=== PATIENT | female | born 1935 | race Caucasian/White ===

== ENCOUNTER 2018-07-22 16:14 | Inpatient (IN) ==
--- NOTE | 2018-07-22 16:17 | Emergency Department Note ---
Disposition Clinical Impression: Fall, Lung nodule, Dehydration Disposition: Admitted As Inpatient Condition: Fair General Adult HPI - General Stated complaint: poss cva Time Seen by Provider: 07/22/18 16:16 - Related Data Allergies Allergy/AdvReac Type Severity Reaction Status Date / Time No Known Allergies Allergy Verified 07/22/18 16:38 Course Vital Signs Temperature 97.5 F L 07/22/18 16:17 Pulse Rate 97 07/22/18 16:17 Respiratory Rate 22 07/22/18 16:17 Blood Pressure 90/68 07/22/18 16:17 O2 Sat by Pulse Oximetry 97 07/22/18 16:17 Temperature 97.4 F L 07/22/18 21:39 Pulse Rate 98 07/22/18 21:39 Respiratory Rate 20 07/22/18 21:39 Blood Pressure 124/69 07/22/18 21:39 O2 Sat by Pulse Oximetry 89 07/22/18 21:55 Oxygen Delivery Oxygen Delivery Nasal Cannula Medical Decision Making - Lab Data Result diagrams: 07/22/18 20:36 07/22/18 20:36 Lab Results 07/22/18 07/22/18 07/22/18 Range/Units 17:34 17:34 17:34 WBC 33.3 H* (4.3-11.1) K/mcL RBC 5.43 H (3.82-4.97) M/mcL Hgb 16.6 H (11.5-15.4) g/dL Hct 47.0 H (35.3-44.9) % MCV 86.6 (83.0-100.0) fL MCH 30.6 (28.0-33.3) pg MCHC 35.3 (31.6-35.5) g/dL RDW 12.4 (11.5-14.5) % Plt Count 266 (140-400) K/mcL MPV 8.6 L (9.4-12.4) fL Seg Neutrophils % 98.0 % Lymphocytes % 2.0 % Neutrophils # 32.6 H (1.6-8.9) K/mcL Lymphocytes # 0.7 (0.6-4.6) K/mcL Platelet Estimate Normal (Normal) PT 12.9 H (9.4-12.1) Seconds INR 1.1 Sodium 122 L (136-145) mEq/L Potassium 4.9 (3.5-5.1) mEq/L Chloride 83 L (98-107) mEq/L Carbon Dioxide 23 (23-29) mEq/L BUN 30 H (8-23) mg/dL Creatinine 0.42 L (0.60-1.20) mg/dL Est GFR ( Amer) > 60 (> 60) Est GFR (Non-Af Amer) > 60 (> 60) BUN/Creatinine Ratio 71 H (6-26) Glucose 65 L (70-105) mg/dL Calculated Osmolality 258 L (280-300) Calcium 9.3 (8.6-10.3) mg/dL Magnesium 1.8 (1.6-2.6) mg/dL Total Bilirubin 0.8 (0.3-1.0) mg/dL AST 55 H (13-39) Units/L ALT 44 (7-52) Units/L Alkaline Phosphatase 106 H (34-104) Units/L Creatine Kinase 394 H (30-223) Units/L Troponin I 0.04 H* (< 0.04) ng/mL Serum Total Protein 5.9 L (6.4-8.9) g/dL Albumin 3.3 L (3.5-5.7) g/dL Globulin 2.6 (2.4-3.5) g/dL Albumin/Globulin Ratio 1.3 (1.1-2.2) Urine Color (Yellow) Urine Clarity (Clear) Urine pH (5.0-8.0) pH Units Ur Specific [place] (1.010-1.025) Urine Protein (Neg-Trace) mg/dL Urine Glucose (UA) (Normal) mg/dL Urine Ketones (Negative) mg/dL Urine Blood (Negative) Urine Nitrite (Negative) Urine Bilirubin (Negative) Urine Urobilinogen (Normal) mg/dL Ur Leukocyte Esterase (Negative) Urine Microscopic RBC (0-3) per hpf Urine Microscopic WBC (0-3) per hpf Ur Squamous Epith Cells (None-Few) per lpf Urine Bacteria (None-Few) per hpf Hyaline Casts (None-Few) per lpf 07/22/18 Range/Units 19:05 WBC (4.3-11.1) K/mcL RBC (3.82-4.97) M/mcL Hgb (11.5-15.4) g/dL Hct (35.3-44.9) % MCV (83.0-100.0) fL MCH (28.0-33.3) pg MCHC (31.6-35.5) g/dL RDW (11.5-14.5) % Plt Count (140-400) K/mcL MPV (9.4-12.4) fL Seg Neutrophils % % Lymphocytes % % Neutrophils # (1.6-8.9) K/mcL Lymphocytes # (0.6-4.6) K/mcL Platelet Estimate (Normal) PT (9.4-12.1) Seconds INR Sodium (136-145) mEq/L Potassium (3.5-5.1) mEq/L Chloride (98-107) mEq/L Carbon Dioxide (23-29) mEq/L BUN (8-23) mg/dL Creatinine (0.60-1.20) mg/dL Est GFR ( Amer) (> 60) Est GFR (Non-Af Amer) (> 60) BUN/Creatinine Ratio (6-26) Glucose (70-105) mg/dL Calculated Osmolality (280-300) Calcium (8.6-10.3) mg/dL Magnesium (1.6-2.6) mg/dL Total Bilirubin (0.3-1.0) mg/dL AST (13-39) Units/L ALT (7-52) Units/L Alkaline Phosphatase (34-104) Units/L Creatine Kinase (30-223) Units/L Troponin I (< 0.04) ng/mL Serum Total Protein (6.4-8.9) g/dL Albumin (3.5-5.7) g/dL Globulin (2.4-3.5) g/dL Albumin/Globulin Ratio (1.1-2.2) Urine Color Yellow (Yellow) Urine Clarity Cloudy A (Clear) Urine pH 6.0 (5.0-8.0) pH Units Ur Specific [place] 1.016 (1.010-1.025) Urine Protein 30 H (Neg-Trace) mg/dL Urine Glucose (UA) Normal (Normal) mg/dL Urine Ketones Trace H (Negative) mg/dL Urine Blood Negative (Negative) Urine Nitrite Negative (Negative) Urine Bilirubin Negative (Negative) Urine Urobilinogen Normal (Normal) mg/dL Ur Leukocyte Esterase Negative (Negative) Urine Microscopic RBC 0-3 (0-3) per hpf Urine Microscopic WBC 0-3 (0-3) per hpf Ur Squamous Epith Cells Many H (None-Few) per lpf Urine Bacteria None Seen (None-Few) per hpf Hyaline Casts None Seen (None-Few) per lpf Attestation Statement - Attestation Attestation: I reviewed the residents documentation and agree with the residents assessment and plan of care. I have personally had face to face time with the patient. (Brief History, Brief Exam, and MDM) I personally supervised and was present for the garcia/critical portions of the following procedures completed by the resident: (add procedures performed here). [id number] time provided Patient arrives home by EMS. On arrival she is alert and lucid with very dry mucous membranes. She does not appear to have any focal neurologic motor deficits. It was reported that she fell several days ago. I evaluated this patient in conjunction with the resident physician Dr. Meyer. I attest supervising his interpretation of ECG.
[2018-07-22] MEDS ORDERED: 0.9 % Sodium Chloride 1,000 ML IVC ONE ×2 (16:27→17:56)
--- NOTE | 2018-07-22 17:11 | Emergency Department Note ---
Disposition Clinical Impression: Lung nodule, Dehydration Fall Qualifiers: Encounter type: initial encounter Qualified Code(s): W19.XXXA - Unspecified fall, initial encounter Disposition: Admitted As Inpatient Condition: Fair Forms: ED Satisfaction Letter General Adult HPI - General Chief complaint: ED Fall Stated complaint: FAll Time Seen by Provider: 07/22/18 16:16 Source: patient, EMS Mode of arrival: ambulatory Limitations: no limitations Nursing Notes Reviewed: Yes Vital Signs Reviewed: Yes - History of Present Illness HPI Narrative: 83-year-old female presents to the emergency department after being found on the ground. She states that she fell on Saturday and has been unable to get up on her own since that time. She said that she just got weak and fell to the ground should she did not hit her head did not lose consciousness. Today her son went to go check on her and then he noticed on exam asthma called EMS. Patient states that she remembers everything she does not hurt anywhere this feels weak. She has burning with urination and has had a cough. She does not noted any fevers recently. Patient otherwise has no other complaints at this time. Pain Scale: 3 - Related Data Allergies Allergy/AdvReac Type Severity Reaction Status Date / Time No Known Allergies Allergy Verified 07/22/18 16:38 All systems ED: reviewed and negative except as stated. Review of Systems: As Per HPI Past Medical History - Past Medical History Attestation: Yes The following information was validated with the patient. Source: patient Medical history: Reports: hyperlipidemia, hypertension, other Psychiatric history: Reports: no psych history - Social History Smoking Status: Unknown if ever smoked Smokeless Tobacco Status: No Alcohol use: Reports: unknown Drug use: Reports: unknown Physical Exam - General Limitations: no limitations General appearance: alert - Head Head exam: atraumatic, normocephalic, normal inspection - Eye Eye exam: Present: normal appearance, PERRL, EOMI - ENT ENT exam: normal exam, normal oropharynx, mucous membranes moist - Neck Neck exam: Present: normal inspection, full ROM, trachea midline - Chest Chest inspection: Present: normal inspection, symmetric chest wall rise - Respiratory Respiratory exam: Present: normal lung sounds bilaterally, other (Rhonchi nanette aterally.). Absent: respiratory distress, wheezes, accessory muscle use - Cardiovascular Cardiovascular exam: Present: regular rate, normal rhythm, normal heart sounds - Abdominal Exam Abdominal exam: Present: soft, Non-Tender, normal bowel sounds. Absent: tenderness, distention, guarding, rebound, rigidity - Extremities Exam Extremities exam: Present: normal inspection, full ROM. Absent: tenderness, pedal edema - Expanded Lower Extremity Exam Hip/Pelvis exam: Present: normal inspection, full ROM, pelvis stable - Back Exam Back exam: Present: normal inspection, full ROM, other (Mild bruising to the mid thoracic area right were patient's kyphotic back is. There is no open sores. No open ulcers. There is no pain while palpating the entire spine from cervical to lumbar spine.). Absent: tenderness, CVA tenderness (R), CVA tenderness (L) - Neurological Exam Neurological exam: Present: alert, oriented X3 - Expanded Neurological Exam Patient oriented to: Present: person, place, time Speech: Present: fluid speech Cranial nerves: EOM function (II, III, IV, ): Normal, facial sensation (V): Normal, facial palsy (VII): Normal, spinal accessory function (XI): Normal, tongue deviation (XII): Normal Cerebellar function: finger to nose: Normal, heel to leos: Normal Motor strength - LUE: 4/5 Motor strength - RUE: 4/5 Motor strength - LLE: 4/5 Motor strength - RLE: 4/5 Upper motor neuron exam: millie neglect: Absent bilaterally, pronator drift: Absent bilaterally Sensory exam lower extremity: light touch: Normal Coma Scale Eye Opening: Spontaneous Coma Scale Motor Response: Obeys Commands Coma Scale Verbal Response: Oriented Coma Scale Total: 15 - Skin Skin exam: Present: warm, dry, intact, normal color Course Course Narrative: Patient sees a failure to thrive also possible rhabdomyolysis. There is no pain along the spine while palpating to the fall we will get a CT head we will get basic labs including a CK we a troponin EKG chest x-ray. Patient okay with this plan. We will give patient 1 L IV fluids as she does seem dehydrated at this time. Urinalysis also pending. We will also get blood cultures. Disposition will be admission for further evaluation and hydration. Vital Signs Temperature 97.5 F L 07/22/18 16:17 Pulse Rate 97 07/22/18 16:17 Respiratory Rate 22 07/22/18 16:17 Blood Pressure 90/68 07/22/18 16:17 O2 Sat by Pulse Oximetry 97 07/22/18 16:17 Temperature 97.5 F L 07/22/18 16:17 Pulse Rate 81 07/22/18 18:52 Respiratory Rate 16 07/22/18 18:52 Blood Pressure 116/58 07/22/18 18:52 O2 Sat by Pulse Oximetry 96 07/22/18 18:52 Oxygen Delivery Oxygen Delivery Nasal Cannula Medical Decision Making - MDM Narrative Medical decision making narrative: 83 old female presented to the emergency department after a fall where she was found down in the spray laying down for multiple days. Did have elevated CK could have been an mild rhabdomyolysis. But she only had a mild elevated CK. Patient did show to be very dehydrated. There is no signs of infection urine was normal chest x-ray did show possible nodule we will do a routine chest CT later. This nonemergent this time. Did give the patient total of 2 L of IV fluids. She did respond well to this. Patient alert and oriented. She had an NIH scale of 0 area there is very low likelihood of this being a stroke. Patient did receive 2 L IV fluid she does feel better after doing this. I spoke with the hospitalist who agreed to accept the patient to their service. Patient admitted in stable condition. There was a nodule seen on chest x-ray did tell patient will do a routine CT later. Chest X-Ray 07/22/18 16:17 IMPRESSION: 1. Questionable 1.7 cm nodular density overlying the right lung. Recommend CT of the chest for further evaluation. D/ / Chicho Beyer MD / Chicho Beyer MD Interpreting Provider: Chicho Beyer MD Head CT 07/22/18 16:17 IMPRESSION: No acute intracranial abnormality. Findings compatible with age related atrophy and likely chronic small vessel ischemic change. Mild soft tissue swelling posterior left scalp. No acute bony abnormalities. D/ / Delfino Lopes MD / Delfino Lopes MD Interpreting Provider: Delfino Lopes MD - Medical Records Medical records reviewed: Yes I reviewed the patient's medical records. - Lab Data Lab results reviewed: Yes I reviewed the patient's lab results. Result diagrams: 07/22/18 17:34 07/22/18 17:34 Lab Results 07/22/18 07/22/18 07/22/18 Range/Units 17:34 17:34 17:34 WBC 33.3 H* (4.3-11.1) K/mcL RBC 5.43 H (3.82-4.97) M/mcL Hgb 16.6 H (11.5-15.4) g/dL Hct 47.0 H (35.3-44.9) % MCV 86.6 (83.0-100.0) fL MCH 30.6 (28.0-33.3) pg MCHC 35.3 (31.6-35.5) g/dL RDW 12.4 (11.5-14.5) % Plt Count 266 (140-400) K/mcL MPV 8.6 L (9.4-12.4) fL Seg Neutrophils % 98.0 % Lymphocytes % 2.0 % Neutrophils # 32.6 H (1.6-8.9) K/mcL Lymphocytes # 0.7 (0.6-4.6) K/mcL Platelet Estimate Normal (Normal) PT 12.9 H (9.4-12.1) Seconds INR 1.1 Sodium 122 L (136-145) mEq/L Potassium 4.9 (3.5-5.1) mEq/L Chloride 83 L (98-107) mEq/L Carbon Dioxide 23 (23-29) mEq/L BUN 30 H (8-23) mg/dL Creatinine 0.42 L (0.60-1.20) mg/dL Est GFR ( Amer) > 60 (> 60) Est GFR (Non-Af Amer) > 60 (> 60) BUN/Creatinine Ratio 71 H (6-26) Glucose 65 L (70-105) mg/dL Calculated Osmolality 258 L (280-300) Calcium 9.3 (8.6-10.3) mg/dL Magnesium 1.8 (1.6-2.6) mg/dL Total Bilirubin 0.8 (0.3-1.0) mg/dL AST 55 H (13-39) Units/L ALT 44 (7-52) Units/L Alkaline Phosphatase 106 H (34-104) Units/L Creatine Kinase 394 H (30-223) Units/L Troponin I 0.04 H* (< 0.04) ng/mL Serum Total Protein 5.9 L (6.4-8.9) g/dL Albumin 3.3 L (3.5-5.7) g/dL Globulin 2.6 (2.4-3.5) g/dL Albumin/Globulin Ratio 1.3 (1.1-2.2) Urine Color (Yellow) Urine Clarity (Clear) Urine pH (5.0-8.0) pH Units Ur Specific [place] (1.010-1.025) Urine Protein (Neg-Trace) mg/dL Urine Glucose (UA) (Normal) mg/dL Urine Ketones (Negative) mg/dL Urine Blood (Negative) Urine Nitrite (Negative) Urine Bilirubin (Negative) Urine Urobilinogen (Normal) mg/dL Ur Leukocyte Esterase (Negative) Urine Microscopic RBC (0-3) per hpf Urine Microscopic WBC (0-3) per hpf Ur Squamous Epith Cells (None-Few) per lpf Urine Bacteria (None-Few) per hpf Hyaline Casts (None-Few) per lpf 07/22/18 Range/Units 19:05 WBC (4.3-11.1) K/mcL RBC (3.82-4.97) M/mcL Hgb (11.5-15.4) g/dL Hct (35.3-44.9) % MCV (83.0-100.0) fL MCH (28.0-33.3) pg MCHC (31.6-35.5) g/dL RDW (11.5-14.5) % Plt Count (140-400) K/mcL MPV (9.4-12.4) fL Seg Neutrophils % % Lymphocytes % % Neutrophils # (1.6-8.9) K/mcL Lymphocytes # (0.6-4.6) K/mcL Platelet Estimate (Normal) PT (9.4-12.1) Seconds INR Sodium (136-145) mEq/L Potassium (3.5-5.1) mEq/L Chloride (98-107) mEq/L Carbon Dioxide (23-29) mEq/L BUN (8-23) mg/dL Creatinine (0.60-1.20) mg/dL Est GFR ( Amer) (> 60) Est GFR (Non-Af Amer) (> 60) BUN/Creatinine Ratio (6-26) Glucose (70-105) mg/dL Calculated Osmolality (280-300) Calcium (8.6-10.3) mg/dL Magnesium (1.6-2.6) mg/dL Total Bilirubin (0.3-1.0) mg/dL AST (13-39) Units/L ALT (7-52) Units/L Alkaline Phosphatase (34-104) Units/L Creatine Kinase (30-223) Units/L Troponin I (< 0.04) ng/mL Serum Total Protein (6.4-8.9) g/dL Albumin (3.5-5.7) g/dL Globulin (2.4-3.5) g/dL Albumin/Globulin Ratio (1.1-2.2) Urine Color Yellow (Yellow) Urine Clarity Cloudy A (Clear) Urine pH 6.0 (5.0-8.0) pH Units Ur Specific [place] 1.016 (1.010-1.025) Urine Protein 30 H (Neg-Trace) mg/dL Urine Glucose (UA) Normal (Normal) mg/dL Urine Ketones Trace H (Negative) mg/dL Urine Blood Negative (Negative) Urine Nitrite Negative (Negative) Urine Bilirubin Negative (Negative) Urine Urobilinogen Normal (Normal) mg/dL Ur Leukocyte Esterase Negative (Negative) Urine Microscopic RBC 0-3 (0-3) per hpf Urine Microscopic WBC 0-3 (0-3) per hpf Ur Squamous Epith Cells Many H (None-Few) per lpf Urine Bacteria None Seen (None-Few) per hpf Hyaline Casts None Seen (None-Few) per lpf - Radiology Data Radiology results reviewed: Yes I reviewed the patient's radiology results. - EKG Data EKG #1 EKG attestation: Yes I reviewed and interpreted this EKG. EKG results narrative: EKG done at 1627 review myself and attending shows sinus tachycardia rate of 112, CT 174, QRS 86, QTC 448. There is no acute ST changes no acute T-wave changes no other signs of ischemia. No signs of hypertrophy, heart strain, heart block. No WPW/Brugada/HOCM. No old EKG compare with
[2018-07-22 17:47] LABS: Hemoglobin 16.6 g/dL (11.5-15.4); Mean Corpuscular HGB Conc 35.3 g/dL (31.6-35.5); Mean Corpuscular Hemoglobin 30.6 pg (28.0-33.3); Mean Corpuscular Volume 86.6 fL (83.0-100.0); Mean Platelet Volume 8.6 fL (9.4-12.4); Platelet Count 266 K/mcL (140-400); Red Blood Count 5.43 M/mcL (3.82-4.97); Red Cell Distribution Width 12.4 % (11.5-14.5)
[2018-07-22 17:55] LABS: INR 1.1; Prothrombin Time 12.9 Seconds (9.4-12.1)
[2018-07-22 18:08] LABS: Lymphocytes # 0.7 K/mcL (0.6-4.6); Neutrophils # 32.6 K/mcL (1.6-8.9); Platelet Estimate Normal (Normal)
[2018-07-22 18:11] LABS: Troponin I 0.04 ng/mL (< 0.04)
[2018-07-22 19:08] LABS: Alanine Aminotransferase 44 Units/L (7-52); Albumin 3.3 g/dL (3.5-5.7); Albumin/Globulin Ratio 1.3 (1.1-2.2); Alkaline Phosphatase 106 Units/L (34-104); Aspartate Amino Transferase 55 Units/L (13-39); BUN/Creatinine Ratio 71 (6-26); Bilirubin,Total 0.8 mg/dL (0.3-1.0); Blood Urea Nitrogen 30 mg/dL (8-23); Calcium 9.3 mg/dL (8.6-10.3); Carbon Dioxide 23 mEq/L (23-29); Chloride 83 mEq/L (98-107); Creatine Kinase 394 Units/L (30-223); Globulin 2.6 g/dL (2.4-3.5); Glucose 65 mg/dL (70-105); Magnesium 1.8 mg/dL (1.6-2.6); Osmolality,Calculated 258 (280-300); Potassium 4.9 mEq/L (3.5-5.1); Sodium 122 mEq/L (136-145); Total Protein 5.9 g/dL (6.4-8.9); eGFR For Non-African Americans > 60 (> 60)
[2018-07-22 19:16] LABS: Bilirubin,Urine Negative (Negative); Blood,Urine Negative (Negative); Clarity,Urine Cloudy (Clear); Color,Urine Yellow (Yellow); Glucose,Urine (UA) Normal (Normal); Ketones,Urine Trace mg/dL (Negative); Leukocyte Esterase,Urine Negative (Negative); Nitrite,Urine Negative (Negative); Protein,Urine 30 mg/dL (Neg-Trace); Specific Gravity,Urine 1.016 (1.010-1.025); Urobilinogen,Urine Normal (Normal)
[2018-07-22 19:17] LABS: Bacteria,Urine None Seen per hpf (None-Few); Hyaline Casts,Urine None Seen per lpf (None-Few); Squamous Epithelial Cell,Urine Many per lpf (None-Few); WBC,Urine 0-3 per hpf (0-3)
[2018-07-22 19:20] LABS: RBC,Urine 0-3 per hpf (0-3)
[2018-07-22] MEDS ORDERED: Ondansetron 4 MG/2 ML VIAL IVP PRN (20:36)
[2018-07-22] MEDS ORDERED: Isovue-370 500 ML BOTTLE IVP ONE (20:36)
[2018-07-22] MEDS ORDERED: Naloxone 0.4 MG/ML INJ IVP PRN (20:36)
[2018-07-22] MEDS ORDERED: Ringers Solution, Lactated 1,000 ML IVC SCH (20:45)
[2018-07-22 21:01] LABS: Basophils # 0.1 K/mcL (0.0-0.2); Basophils % 0.3 %; Hematocrit 44.6 % (35.3-44.9); Hemoglobin 15.4 g/dL (11.5-15.4); Immature Granulocytes % 1.5 % (0-4); Lymphocytes # 0.4 K/mcL (0.6-4.6); Lymphocytes % 1.1 %; Mean Corpuscular HGB Conc 34.5 g/dL (31.6-35.5); Mean Corpuscular Hemoglobin 30.3 pg (28.0-33.3); Mean Corpuscular Volume 87.6 fL (83.0-100.0); Mean Platelet Volume 8.6 fL (9.4-12.4); Monocytes # 1.5 K/mcL (0.0-1.3); Monocytes % 4.7 %; Platelet Count 240 K/mcL (140-400); Red Blood Count 5.09 M/mcL (3.82-4.97); Red Cell Distribution Width 12.5 % (11.5-14.5); Segmented Neutrophils % 92.4 %
[2018-07-22 21:12] LABS: Neutrophils # 29.3 K/mcL (1.6-8.9)
[2018-07-22 21:13] LABS: BUN/Creatinine Ratio 81 (6-26); Blood Urea Nitrogen 29 mg/dL (8-23); Calcium 9.1 mg/dL (8.6-10.3); Carbon Dioxide 28 mEq/L (23-29); Chloride 85 mEq/L (98-107); Glucose 63 mg/dL (70-105); Osmolality,Calculated 258 (280-300); Potassium 4.8 mEq/L (3.5-5.1); Sodium 122 mEq/L (136-145); eGFR For Non-African Americans > 60 (> 60)
[2018-07-22 21:20] LABS: Troponin I 0.03 ng/mL (< 0.04)
[2018-07-22 21:23] LABS: Platelet Estimate Normal (Normal)
--- NOTE | 2018-07-22 21:42 | Internal Med History&Physical ---
Date of Encounter: 07/22/18 Time of Encounter: 20:15 Internal Medicine - H&P: HPI Chief complaint: Fall, shortness of breath Admitted From: Home History of present illness: Ms. Ambrose is a 83 year old female with history of tobacco abuse ([id number]) presented after an episode of fall. According to the son, he was not able to get a hold of her since Saturday, went to her house, and found her laying on the floor. Initially, patient was confused and was not able to recognize his son. However, at the time of my interview after IVF, patient was alert, oriented x3, and was able to tell me a bit more history. Pt states that she fell after s lipping on the floor on Saturday but was not able to get back up on her feet thereafter because of weakness rather than pain. Fell backward onto her back without head injury. Denies loss of consciousness, headache, blurring of vision, slurring of speech, or focal weakness/numbness. She has no pain anywhere but is complaining of progressively worsening shortness of breath for the last several months. Associated with cough and weight loss. No chest pain, nausea/vomiting, palpitation, orthopnea, PND, or leg swelling. No significant sputum production or hemoptysis reported. No recent surgery. Denies any GI/ symptoms. In the ED, she was borderline hypotensive at 90/68, tachycardic arou nd 105, and saturating 93% on 2L O2. Labwork showed markedly leukocytosis of 33, sodium of 122, creatinine of 0.42, troponin 0.04, and urinalysis negative for nitrite and leukocyte esterase. EKG was somewhat limited by artifacts but showed sinus tachycardia without overt ST-T changes concerning for ischemia. Chest x-ray incidentally showed 1.7 cm nodular density over the right lung. She was given 2 L of IV fluid and admitted for further management. Past Med Surg Social Fam HX - Past Medical History Attestation: Yes The following information was validated with the patient. Source: obtained from family Medical history: no medical history, other Psychiatric history: no psych history - Past Surgical History Additional surgical history: unknown - Social History Smoking Status: Current every day smoker Packs per day: 1 Smokeless Tobacco Status: No Alcohol use: unknown Drug use: unknown - Additional Family History Additional family history: No family history of malignancies Internal Medicine - H&P: Meds Allergy/AdvReac Type Severity Reaction Status Date / Time No Known Allergies Allergy Verified 07/22/18 16:38 All Systems PM: A 10-system review of systems was performed and is negative for pertinent findings except as documented above in the HPI. - Constitutional Vitals: Temp Pulse Resp BP Pulse Ox 97.5 F L 105 18 113/57 93 07/22/18 16:17 07/22/18 19:40 07/22/18 20:36 07/22/18 20:36 07/22/18 19:40 Exam: General: Alert and oriented, mild distress. Cachectic HEENT:EOMI, pupils equal, round and reactive. Cardiovascular:Normal S1 & S2, No JVD. Pulse regular but tachycardic Lungs: diminished bilaterally but rhonchi auscultated bilaterally Abdomen:Soft, non-tender, no rigidity. Extremities:No deformity or swelling Neurological: CN II-XII intact, power and sensation fully intact in all 4 limbs. No cerebellar signs, pronator drift -ve, Babinski downgoing bilaterally Skin:Normal color, no rash, no lesions. Pulses:Carotid and radial pulses normal +2. Rest of the physical exam is non contributory Internal Med - H&P Results - Labs CBC & Chem 7: 07/22/18 20:36 07/22/18 20:36 Labs: Short CBC 07/22/18 07/22/18 Range/Units 17:34 20:36 WBC 33.3 H* 31.7 H* (4.3-11.1) K/mcL Hgb 16.6 H 15.4 (11.5-15.4) g/dL Hct 47.0 H 44.6 (35.3-44.9) % Plt Count 266 240 (140-400) K/mcL Neutrophils # 32.6 H 29.3 H (1.6-8.9) K/mcL BMP 07/22/18 07/22/18 17:34 20:36 Sodium 122 L 122 L Potassium 4.9 4.8 Chloride 83 L 85 L Carbon Dioxide 23 28 BUN 30 H 29 H Creatinine 0.42 L 0.36 L Glucose 65 L 63 L Calcium 9.3 9.1 Cardiac Enzymes 07/22/18 07/22/18 Range/Units 17:34 20:36 Troponin I 0.04 H* 0.03 (< 0.04) ng/mL Liver Function 07/22/18 Range/Units 17:34 Total Bilirubin 0.8 (0.3-1.0) mg/dL AST 55 H (13-39) Units/L ALT 44 (7-52) Units/L Alkaline Phosphatase 106 H (34-104) Units/L Albumin 3.3 L (3.5-5.7) g/dL Urine 07/22/18 Range/Units 19:05 Urine Color Yellow (Yellow) Urine Clarity Cloudy A (Clear) Urine pH 6.0 (5.0-8.0) pH Units Ur Specific [place] 1.016 (1.010-1.025) Urine Protein 30 H (Neg-Trace) mg/dL Urine Glucose (UA) Normal (Normal) mg/dL - Impressions ITS Impressions Chest X-Ray 07/22/18 16:17 IMPRESSION: 1. Questionable 1.7 cm nodular density overlying the right lung. Recommend CT of the chest for further evaluation. D/ / Chicho Beyer MD / Chicho Beyer MD Interpreting Provider: Chicho Beyer MD Head CT 07/22/18 16:17 IMPRESSION: No acute intracranial abnormality. Findings compatible with age related atrophy and likely chronic small vessel ischemic change. Mild soft tissue swelling posterior left scalp. No acute bony abnormalities. D/ / Delfino Lopes MD / Delfino Lopes MD Interpreting Provider: Delfino Lopes MD - Assessment and Plan (1) Sepsis Current Visit: Yes Status: Acute Assessment and plan: Presented with tachycardia and leukocytosis possible pulmonary source based on the exam but no obvious consolidation identified on CXR Pt reports [id number] history of smoking, suspect underlying COPD which may mask small sized consolidation on plain film pt also continues to be tachycardic and requiring O2, will rule out PE with CTA which should demonstrate any consolidative findings will empirically start on IV Michael/azithromycin bronchodilators strep/legionella ag sputum culture if able to expectorate follow up on blood cultures Qualifiers: Sepsis type: sepsis due to unspecified organism Qualified Code(s): A41.9 - Sepsis, unspecified organism (2) Hypoxia Current Visit: Yes Status: Acute Assessment and plan: Possible due to pneumonia but will rule out PE given her persistent tachycardia and hypoxia. (3) Hyponatremia Current Visit: Yes Status: Acute Assessment and plan: Given her history of fall with prolonged down time, suspect dehydration but SIADH with lung nodule is also a possibility given IVF in the ED will repeat BMP now and monitor (4) Lung nodule Current Visit: Yes Status: Chronic Assessment and plan: Incidental finding of right lung nodule measuring 1.7 cm in the patient with significant smoking history for CT as above (5) Elevated troponin Current Visit: Yes Status: Acute Assessment and plan: Likely due to demand ischemia, EKG without ischemic changes telemetry ASA 325mg trend troponin echocardiogram (6) Tobacco abuse Current Visit: Yes Status: Chronic Assessment and plan: smoking cessation emphasized, declines NRT at this point (7) DVT prophylaxis Current Visit: Yes Status: Acute Assessment and plan: Subcutaneous heparin - Time Spent With Patient Total time spent is greater than 50% in coordination of care (as documented) at patient's floor/unit and/or counseling patient: Greater than 35 minutes
[2018-07-22] MEDS ORDERED: Aspirin 325 MG TABLET PO ONE (21:51)
[2018-07-22] MEDS: cefTRIAXone 1,000 MG in Water for inj. (sterile) 20 ML 10 ML IVP SCH (23:15)
[2018-07-22] MEDS: Azithromycin 500 MG in D5% in Water 250 ML IVPB SCH (23:18)
[2018-07-22] MEDS: Ipratropium/Albuterol Neb 3 ML IH SCH (23:34)
[2018-07-22 23:38] LABS: ABG Base Excess 2 mEq/L (-2 to 3); ABG HCO3 31 mEq/L (21-27); ABG Oxygen Saturation 86 % (95-98); ABG PCO2 66 mmHg (35-45); ABG PH 7.28 pH Units (7.32-7.45); ABG PO2 61 mmHg (85-104); ABG TCO2 33 mEq/L (20-26)
[2018-07-23] MEDS: D5% in Lactated Ringers 1,000 ML IVC SCH ×3 (00:07→21:37)
[2018-07-23] MEDS: Ipratropium/Albuterol Neb 3 ML IH SCH ×5 (03:09→20:28)
[2018-07-23 06:26] LABS: Mean Platelet Volume 8.6 fL (9.4-12.4); Monocytes % 5.1 %
[2018-07-23 06:27] LABS: Basophils # 0.1 K/mcL (0.0-0.2); Basophils % 0.3 %; Hematocrit 41.5 % (35.3-44.9); Hemoglobin 14.2 g/dL (11.5-15.4); Immature Granulocytes % 1.2 % (0-4); Lymphocytes # 0.4 K/mcL (0.6-4.6); Lymphocytes % 1.6 %; Mean Corpuscular HGB Conc 34.2 g/dL (31.6-35.5); Mean Corpuscular Volume 87.6 fL (83.0-100.0); Monocytes # 1.4 K/mcL (0.0-1.3); Neutrophils # 24.8 K/mcL (1.6-8.9); Platelet Count 224 K/mcL (140-400); Red Blood Count 4.74 M/mcL (3.82-4.97); Red Cell Distribution Width 12.6 % (11.5-14.5); Segmented Neutrophils % 91.8 %
[2018-07-23 06:34] LABS: VBG HCO3 32 mEq/L (21-27); VBG PCO2 64 mmHg (41-51); VBG PO2 160 mmHg (25-50)
[2018-07-23] MEDS: *HR* Heparin 5,000 UNIT/ML VIAL SQ SCH ×2 (06:35→18:29)
[2018-07-23 06:47] LABS: BUN/Creatinine Ratio 70 (6-26); Blood Urea Nitrogen 21 mg/dL (8-23); Calcium 8.6 mg/dL (8.6-10.3); Carbon Dioxide 31 mEq/L (23-29); Chloride 89 mEq/L (98-107); Glucose 120 mg/dL (70-105); Magnesium 1.7 mg/dL (1.6-2.6); Osmolality,Calculated 266 (280-300); Potassium 4.2 mEq/L (3.5-5.1); Sodium 126 mEq/L (136-145); Troponin I < 0.03 ng/mL (< 0.04); eGFR For Non-African Americans > 60 (> 60)
[2018-07-23 07:02] LABS: Platelet Estimate Normal (Normal)
--- NOTE | 2018-07-23 12:22 | Internal Med Progress Note ---
Hospitalist Progress Note - Encounter Date of Encounter: 07/23/18 Time of Encounter: 12:20 - Subjective Interval History: Nursing reported that patient was lethargic earlier. Currently patient doing better, more alert at this time on bipap. She states shortness of breath is improving on bipap. Unaware of why she is in the hospital. Denies cp, fevers /chills, n/v. - Exam Vitals: Temp Pulse Resp BP Pulse Ox 97.7 F 98 18 113/60 96 07/23/18 10:57 07/23/18 10:57 07/23/18 11:23 07/23/18 11:23 07/23/18 11:23 Exam: General: Alert and oriented, on BIPAP, Cachectic HEENT:EOMI, pupils equal, round and reactive. Cardiovascular:Normal S1 & S2, No JVD. Pulse regular but tachycardic Lungs: diminished bilaterally but rhonchi auscultated bilaterally Abdomen:Soft, non-tender, no rigidity. Extremities:No deformity or swelling Neurological: CN II-XII intact, power and sensation fully intact in all 4 limbs. No cerebellar signs, pronator drift -ve, Babinski downgoing bilaterally Skin:Normal color, no rash, no lesions. Pulses:Carotid and radial pulses normal +2. Rest of the physical exam is non contributory - Assessment and Plan (1) Sepsis Current Visit: Yes Status: Acute Assessment and Plan: Presented with tachycardia and leukocytosis Pt reports [id number] history of smoking, suspect underlying COPD which may mask small sized consolidation on plain film pt also continues to be tachycardic and requiring O2 WBC on admission 31k now improving to 27k Follow-up blood cultures. CTA showed pneumonia. Continue Rocephin/Azithromycin. (2) Lung nodule Current Visit: Yes Status: Chronic Assessment and Plan: Incidental finding of right lung nodule measuring 1.7 cm in the patient with significant smoking history for CT as above (3) Tobacco abuse Current Visit: Yes Status: Chronic Assessment and Plan: smoking cessation emphasized, declines NRT at this point (4) Hyponatremia Current Visit: Yes Status: Acute Assessment and Plan: Given her history of fall with prolonged down time, suspect dehydration but SIADH with lung nodule is also a possibility given IVF in the ED Improving now IV fluid hydration. (5) Elevated troponin Current Visit: Yes Status: Acute Assessment and Plan: Likely due to demand ischemia, EKG without ischemic changes 0.04 on admission now negative x2 (6) DVT prophylaxis Current Visit: Yes Status: Acute Assessment and Plan: Subcutaneous heparin (7) Acute respiratory failure with hypoxia Current Visit: Yes Status: Acute Assessment and Plan: Secondary to pneumonia (8) Pneumonia Current Visit: Yes Status: Acute Assessment and Plan: See above - Time Spent with Patient Total time spent is greater than 50% in coordination of care (as documented) at patient's floor/unit and/or counseling patient: Internal Medicine: Result - Labs CBC & Chem 7: 07/23/18 06:06 07/23/18 06:06 Labs: Short CBC 07/22/18 07/22/18 07/23/18 Range/Units 17:34 20:36 06:06 WBC 33.3 H* 31.7 H* 27.0 H (4.3-11.1) K/mcL Hgb 16.6 H 15.4 14.2 (11.5-15.4) g/dL Hct 47.0 H 44.6 41.5 (35.3-44.9) % Plt Count 266 240 224 (140-400) K/mcL Neutrophils # 32.6 H 29.3 H 24.8 H (1.6-8.9) K/mcL BMP 07/22/18 07/22/18 07/23/18 17:34 20:36 06:06 Sodium 122 L 122 L 126 L Potassium 4.9 4.8 4.2 Chloride 83 L 85 L 89 L Carbon Dioxide 23 28 31 H BUN 30 H 29 H 21 Creatinine 0.42 L 0.36 L 0.30 L Glucose 65 L 63 L 120 H Calcium 9.3 9.1 8.6 Cardiac Enzymes 07/22/18 07/22/18 07/23/18 Range/Units 17:34 20:36 06:06 Troponin I 0.04 H* 0.03 < 0.03 (< 0.04) ng/mL Liver Function 07/22/18 Range/Units 17:34 Total Bilirubin 0.8 (0.3-1.0) mg/dL AST 55 H (13-39) Units/L ALT 44 (7-52) Units/L Alkaline Phosphatase 106 H (34-104) Units/L Albumin 3.3 L (3.5-5.7) g/dL Urine 07/22/18 Range/Units 19:05 Urine Color Yellow (Yellow) Urine Clarity Cloudy A (Clear) Urine pH 6.0 (5.0-8.0) pH Units Ur Specific [place] 1.016 (1.010-1.025) Urine Protein 30 H (Neg-Trace) mg/dL Urine Glucose (UA) Normal (Normal) mg/dL - ABG Interpretation ABG results: ABG ABG pH 7.28 pH Units (7.32-7.45) L 07/22/18 23:33 ABG pCO2 66 mmHg (35-45) H 07/22/18 23:33 ABG pO2 61 mmHg (85-104) L 07/22/18 23:33 ABG O2 Saturation 86 % (95-98) L 07/22/18 23:33 PT/INR, D-dimer PT 12.9 Seconds (9.4-12.1) H 07/22/18 17:34 - Impressions Impressions Chest X-Ray 07/22/18 16:17 IMPRESSION: 1. Questionable 1.7 cm nodular density overlying the right lung. Recommend CT of the chest for further evaluation. D/ / Chicho Beyer MD / Chicho Beyer MD Interpreting Provider: Chicho Beyer MD Head CT 07/22/18 16:17 IMPRESSION: No acute intracranial abnormality. Findings compatible with age related atrophy and likely chronic small vessel ischemic change. Mild soft tissue swelling posterior left scalp. No acute bony abnormalities. D/ / Delfino Lopes MD / Delfino Lopes MD Interpreting Provider: Delfino Lopes MD Chest CTA 07/22/18 20:36 IMPRESSION: No findings diagnostic of pulmonary embolus Multifocal airspace disease, greatest in the lower lobes. Pneumonia is favored. Large cystic lesion in the liver. Additional cystic lesions in the liver and right kidney are noted. Detail in the upper abdomen is limited. Correlate with CT of the abdomen and pelvis with oral and IV contrast Hiatal hernia. Wall thickening of the GE junction would be difficult to exclude given artifact in this region. Right thyroid nodule. Correlate with ultrasound D/ / Eladio Ramos / Eladio Ramos Interpreting Provider: Eladio Ramos Echocardiogram 07/23/18 00:00 Impressions: Technically sub-optimal due to clinical status and poor echocardiographic windows. LVEF 65%. Not all LV segments were well visualized and the limited views obtained, but overall LV function appears normal. Normal LV chamber size and wall thickness. Mild left ventricular diastolic dysfunction. Normal right ventricular structure and function in the apical views. Mild tricuspid regurgitation. Mild-moderate pulmonary hypertension. Estimated RVSP is 47 mmHg. Large echo-free circular space noted adjacent to the right ventricle and the subcostal views and appears to be located within the liver. Consider dedicated imaging for possible cystic lesion if clinically indicated. Findings: Study Quality * Technically sub-optimal due to clinical status and poor echocardiographic windows. ECG Findings * Normal sinus rhythm. Left Ventricle * LVEF 65%. Not all LV segments were well visualized and the limited views obtained, but overall LV function appears normal. * Normal LV chamber size and wall thickness. * Mild left ventricular diastolic dysfunction. Right Ventricle * Normal right ventricular structure and function in the apical views. Left Atrium * Mildly dilated left atrium. Right Atrium * Mildly dilated right atrium. Aortic Valve * Aortic valve not well visualized. * No aortic regurgitation. * No aortic stenosis. Mitral Valve * Mildly thickened mitral valve leaflets. * Mild mitral regurgitation. * No mitral stenosis. Tricuspid Valve * Normal tricuspid valve structure. * Mild tricuspid regurgitation. * Mild-moderate pulmonary hypertension. * Estimated RVSP is 47 mmHg. * Estimated RA pressure is 5 mmHg. Pulmonic Valve * Pulmonic valve is not well visualized. Aorta * Normally sized aortic root. Pericardium * The pericardium appears normal. IVC * Normal IVC dimensions and inspiratory collapse. * Large echo-free circular space noted adjacent to the right ventricle and the subcostal views and appears to be located within the liver. Consider dedicated imaging for possible cystic lesion if clinically indicated. Pulmonary Artery * Pulmonary artery not well visualized. Consult Discharge Plan - Plan Referrals: NONE,PCP [Primary Care Provider] - (1) Sepsis Qualifiers: Sepsis type: sepsis due to unspecified organism Qualified Code(s): A41.9 - Sepsis, unspecified organism
[2018-07-23] MEDS: Leptospermum Honey Paste 44 ML TUBE TP SCH (18:33)
[2018-07-23] MEDS: Azithromycin 500 MG in D5% in Water 250 ML IVPB SCH (21:36)
[2018-07-23] MEDS: cefTRIAXone 1,000 MG in Water for inj. (sterile) 20 ML 10 ML IVP SCH (21:36)
[2018-07-24] MEDS: Ipratropium/Albuterol Neb 3 ML IH SCH ×6 (00:51→20:25)
[2018-07-24] MEDS: *HR* Heparin 5,000 UNIT/ML VIAL SQ SCH ×2 (05:30→17:26)
[2018-07-24] MEDS: D5% in Lactated Ringers 1,000 ML IVC SCH ×2 (07:27→17:26)
[2018-07-24 08:40] LABS: Basophils # 0.1 K/mcL (0.0-0.2); Basophils % 0.2 %; Eosinophils % 0.1 %; Hematocrit 42.9 % (35.3-44.9); Hemoglobin 14.3 g/dL (11.5-15.4); Immature Granulocytes % 1.1 % (0-4); Lymphocytes # 0.4 K/mcL (0.6-4.6); Lymphocytes % 1.8 %; Mean Corpuscular HGB Conc 33.3 g/dL (31.6-35.5); Mean Corpuscular Hemoglobin 29.9 pg (28.0-33.3); Mean Corpuscular Volume 89.7 fL (83.0-100.0); Mean Platelet Volume 8.6 fL (9.4-12.4); Neutrophils # 18.4 K/mcL (1.6-8.9); Platelet Count 227 K/mcL (140-400); Red Blood Count 4.78 M/mcL (3.82-4.97); Red Cell Distribution Width 13.2 % (11.5-14.5); Segmented Neutrophils % 91.8 %
[2018-07-24 08:54] LABS: Calcium 8.6 mg/dL (8.6-10.3); Carbon Dioxide 37 mEq/L (23-29); Chloride 92 mEq/L (98-107); Glucose 141 mg/dL (70-105); Potassium 3.8 mEq/L (3.5-5.1); Sodium 133 mEq/L (136-145)
[2018-07-24 09:02] LABS: BUN/Creatinine Ratio 35 (6-26); Blood Urea Nitrogen 8 mg/dL (8-23); Osmolality,Calculated 277 (280-300); eGFR For Non-African Americans > 60 (> 60)
--- NOTE | 2018-07-24 09:38 | Electrocardiograph Report ---
[address] [address] Test Date: 2018-07-22 Pat Name: Juan Ambrose Department: [id number] Room: 3A Gender: F [employer]: : 1935 Requested By: Jeremy Guerrero Order Number: [id number] Reading MD: Vicente Villanueva Measurements Intervals [place] Rate: 112 P: 86 OK: 174 QRS: 103 QRSD: 86 T: 72 QT: 328 QTc: 448 Interpretive Statements Sinus tachycardia Atrial premature complex Right atrial enlargement Right axis deviation Probable anteroseptal infarct, old Electronically Signed On 07-24-2018 9:37:13 EDT by Vicente Villanueva
[2018-07-24] MEDS: Leptospermum Honey Paste 44 ML TUBE TP SCH (10:08)
--- NOTE | 2018-07-24 13:19 | Internal Med Progress Note ---
Hospitalist Progress Note - Encounter Date of Encounter: 07/24/18 Time of Encounter: 13:16 - Subjective Interval History: Pt more alert today. She states her breathing has been improving more so today. She denies fever, chills, N/V or diarrhea. - Exam Vitals: Temp Pulse Resp BP Pulse Ox 97.6 F 97 18 122/76 98 07/24/18 10:08 07/24/18 10:08 07/24/18 11:18 07/24/18 10:08 07/24/18 11:18 Exam: Exam: General: Alert and oriented, on BIPAP, Cachectic HEENT:EOMI, pupils equal, round and reactive. Cardiovascular:Normal S1 & S2, No JVD. Pulse regular but tachycardic Lungs: Diminished bilaterally but rhonchi auscultated bilaterally Abdomen: Soft, non-tender, no rigidity. Extremities: No deformity or swelling Neurological: CN II-XII intact, power and sensation fully intact in all 4 limbs. No cerebellar signs, pronator drift -ve, Babinski down going bilaterally Skin:Normal color, no rash, no lesions. Pulses:Carotid and radial pulses normal +2. Rest of the physical exam is non contributory - Assessment and Plan (1) Sepsis Current Visit: Yes Status: Acute Assessment and Plan: Presented with tachycardia and leukocytosis Pt reports [id number] history of smoking, suspect underlying COPD which may mask small sized consolidation on plain film pt also continues to be tachycardic and requiring O2 WBC on admission 31k now improving to 27k Follow-up blood cultures. CTA showed pneumonia. Continue Rocephin/Azithromycin. (2) Community acquired bacterial pneumonia Current Visit: Yes Status: Acute Assessment and Plan: Continue on Rocephin and Zithromax CTA chest showed multifocal airspace disease, greatest in the lower lobes. Pneumonia is favored. (3) Acute respiratory failure with hypoxia Current Visit: Yes Status: Acute Assessment and Plan: Secondary to pneumonia (4) Lung nodule Current Visit: Yes Status: Chronic Assessment and Plan: Incidental finding of right lung nodule measuring 1.7 cm in the patient with significant smoking history for CT as above (5) Tobacco abuse Current Visit: Yes Status: Chronic Assessment and Plan: smoking cessation emphasized, declines NRT at this point (6) Hyponatremia Current Visit: Yes Status: Acute Assessment and Plan: Given her history of fall with prolonged down time and infection, likely due to dehydration. Improving now IV fluid hydration. (7) Elevated troponin Current Visit: Yes Status: Acute Assessment and Plan: Likely due to demand ischemia, EKG without ischemic changes 0.04 on admission now negative x2 DVT Prophylaxis: Heparin - Time Spent with Patient Total time spent is greater than 50% in coordination of care (as documented) at patient's floor/unit and/or counseling patient: less than 15 minutes Plan of Care Discussed with: patient Internal Medicine: Result - Labs CBC & Chem 7: 07/24/18 08:13 07/24/18 08:13 Labs: Short CBC 07/24/18 Range/Units 08:13 WBC 20.1 H (4.3-11.1) K/mcL Hgb 14.3 (11.5-15.4) g/dL Hct 42.9 (35.3-44.9) % Plt Count 227 (140-400) K/mcL Neutrophils # 18.4 H (1.6-8.9) K/mcL BMP 07/24/18 08:13 Sodium 133 L Potassium 3.8 Chloride 92 L Carbon Dioxide 37 H BUN 8 Creatinine 0.23 L Glucose 141 H Calcium 8.6 - ABG Interpretation ABG results: ABG ABG pH 7.28 pH Units (7.32-7.45) L 07/22/18 23:33 ABG pCO2 66 mmHg (35-45) H 07/22/18 23:33 ABG pO2 61 mmHg (85-104) L 07/22/18 23:33 ABG O2 Saturation 86 % (95-98) L 07/22/18 23:33 PT/INR, D-dimer PT 12.9 Seconds (9.4-12.1) H 07/22/18 17:34 Consult Discharge Plan - Plan Referrals: NONE,PCP [Primary Care Provider] - (1) Sepsis Qualifiers: Sepsis type: sepsis due to unspecified organism Qualified Code(s): A41.9 - Sepsis, unspecified organism
[2018-07-24] MEDS: cefTRIAXone 1,000 MG in Water for inj. (sterile) 20 ML 10 ML IVP SCH (20:29)
[2018-07-24] MEDS: Azithromycin 500 MG in D5% in Water 250 ML IVPB SCH (20:30)
[2018-07-25] MEDS: Ipratropium/Albuterol Neb 3 ML IH SCH ×7 (00:29→23:33)
[2018-07-25] MEDS: D5% in Lactated Ringers 1,000 ML IVC SCH ×2 (04:08→15:07)
[2018-07-25] MEDS: *HR* Heparin 5,000 UNIT/ML VIAL SQ SCH ×2 (06:34→18:48)
[2018-07-25] MEDS: Leptospermum Honey Paste 44 ML TUBE TP SCH (09:53)
--- NOTE | 2018-07-25 12:45 | Internal Med Progress Note ---
Hospitalist Progress Note - Encounter Date of Encounter: 07/25/18 Time of Encounter: 12:41 - Subjective Interval History: Patient seen and examined this morning at bedside. No acute overnight events. Breathing gradually improving. Afebrile and hemodynamically stable. Slightly tachycardic - Exam Vitals: Temp Pulse Resp BP Pulse Ox 98.3 F 100 16 99/54 90 07/25/18 11:48 07/25/18 11:48 07/25/18 11:48 07/25/18 11:48 07/25/18 11:48 Exam: General: In no acute distress. frail elderly. Respiratory exam: CTAB. no accessory muscle use. scattered rhonchi and rales Cardiovascular exam: tachycardia, +S1, +S2. no murmur, gallop, rubs. GI/Abdominal exam: Non-tender, Non-distended, normal bowel sounds, soft, no peritoneal signs. Extremities exam: 1+ pedal edema, pulses palpable in b/l lower extremities. no calf tenderness Neurological exam: CN II-XII intact, AO X3, no focal deficits. Skin exam: echymosis noted - Assessment and Plan (1) Lung nodule Current Visit: Yes Status: Chronic (2) Sepsis Current Visit: Yes Status: Acute (3) Tobacco abuse Current Visit: Yes Status: Chronic (4) Hyponatremia Current Visit: Yes Status: Acute (5) Elevated troponin Current Visit: Yes Status: Acute (6) Acute respiratory failure with hypoxia Current Visit: Yes Status: Acute (7) Community acquired bacterial pneumonia Current Visit: Yes Status: Acute - Summary of Assessment and Plan Summary of Assessment and Plan: Assessment Sepsis Pneumonia Acute hypoxic respiratory failure Liver and pancreatic cyst Hyponatremia Elevated troponin Mod protein calorie maltrutition Plan - Continue ceftriaxone and azithromycin for pneumonia. White count improving. Urine antigen negative. Blood cultures and urine culture no growth to date. CTA negative for PE. Bipap prn. - Hyponatremia improving with IV fluids. possibly from pneumonia and dehydration. continue IVf for now. c/w dietary supplements. - Minimally elevated troponin. Then negative x2. Likely demand. - f/u outpatient CT for lung nodule - Obtain CT with Po and iV contrast for liver and pancreatic cyst. - Time Spent with Patient Total time spent is greater than 50% in coordination of care (as documented) at patient's floor/unit and/or counseling patient: Internal Medicine: Result - Labs CBC & Chem 7: 07/24/18 08:13 07/24/18 08:13 - ABG Interpretation ABG results: ABG ABG pH 7.28 pH Units (7.32-7.45) L 07/22/18 23:33 ABG pCO2 66 mmHg (35-45) H 07/22/18 23:33 ABG pO2 61 mmHg (85-104) L 07/22/18 23:33 ABG O2 Saturation 86 % (95-98) L 07/22/18 23:33 PT/INR, D-dimer PT 12.9 Seconds (9.4-12.1) H 07/22/18 17:34 Consult Discharge Plan - Plan Referrals: NONE,PCP [Primary Care Provider] - (2) Sepsis Qualifiers: Sepsis type: sepsis due to unspecified organism Qualified Code(s): A41.9 - Sepsis, unspecified organism
[2018-07-25] MEDS ORDERED: Isovue-370 500 ML BOTTLE IVP ONE (14:57)
[2018-07-25] MEDS: Azithromycin 250 MG TABLET PO SCH (15:07)
[2018-07-25] MEDS: cefTRIAXone 1,000 MG in Water for inj. (sterile) 20 ML 10 ML IVP SCH (20:37)
[2018-07-26] MEDS: Ipratropium/Albuterol Neb 3 ML IH SCH ×5 (03:44→19:55)
[2018-07-26] MEDS: *HR* Heparin 5,000 UNIT/ML VIAL SQ SCH ×2 (04:09→17:41)
[2018-07-26] MEDS: D5% in Lactated Ringers 1,000 ML IVC SCH ×2 (04:12→21:04)
[2018-07-26 07:03] LABS: Basophils % 0.1 %; Eosinophils # 0.1 K/mcL (0.0-0.6); Eosinophils % 0.6 %; Hematocrit 37.1 % (35.3-44.9); Hemoglobin 12.3 g/dL (11.5-15.4); Immature Granulocytes % 1.1 % (0-4); Lymphocytes # 0.5 K/mcL (0.6-4.6); Lymphocytes % 3.2 %; Mean Corpuscular HGB Conc 33.2 g/dL (31.6-35.5); Mean Corpuscular Hemoglobin 30.2 pg (28.0-33.3); Mean Corpuscular Volume 91.2 fL (83.0-100.0); Mean Platelet Volume 8.5 fL (9.4-12.4); Monocytes # 1.1 K/mcL (0.0-1.3); Platelet Count 208 K/mcL (140-400); Red Blood Count 4.07 M/mcL (3.82-4.97); Red Cell Distribution Width 13.4 % (11.5-14.5)
[2018-07-26 07:28] LABS: BUN/Creatinine Ratio 38 (6-26); Blood Urea Nitrogen 8 mg/dL (8-23); Calcium 8.4 mg/dL (8.6-10.3); Carbon Dioxide 42 mEq/L (23-29); Chloride 93 mEq/L (98-107); Glucose 121 mg/dL (70-105); Osmolality,Calculated 282 (280-300); Potassium 3.3 mEq/L (3.5-5.1); Sodium 136 mEq/L (136-145); eGFR For Non-African Americans > 60 (> 60)
--- NOTE | 2018-07-26 08:35 | Internal Med Progress Note ---
Hospitalist Progress Note - Encounter Date of Encounter: 07/26/18 Time of Encounter: 08:34 - Subjective Interval History: Patient seen and examined this morning in with her. No acute overnight events. Patient denies any difficulty breathing or chest pain. Feels breathing is about the same as yesterday. Denies any abdominal pain. Has Gunn in place. - Exam Vitals: Temp Pulse Resp BP Pulse Ox 98.4 F 77 18 110/53 99 07/26/18 07:20 07/26/18 07:20 07/26/18 07:20 07/26/18 07:20 07/26/18 07:20 Exam: General: In no acute distress. frail elderly. Respiratory exam: no accessory muscle use. scattered rhonchi and rales more at base Cardiovascular exam: tachycardia, +S1, +S2. no murmur, gallop, rubs. GI/Abdominal exam: Non-tender, Non-distended, normal bowel sounds, soft, no peritoneal signs. Extremities exam: 1+ pedal edema, pulses palpable in b/l lower extremities. no calf tenderness Neurological exam: CN II-XII intact, AO X3, no focal deficits. Skin exam: echymosis noted - Assessment and Plan (1) Lung nodule Current Visit: Yes Status: Chronic (2) Sepsis Current Visit: Yes Status: Acute (3) Tobacco abuse Current Visit: Yes Status: Chronic (4) Hyponatremia Current Visit: Yes Status: Acute (5) Elevated troponin Current Visit: Yes Status: Acute (6) Acute respiratory failure with hypoxia Current Visit: Yes Status: Acute (7) Community acquired bacterial pneumonia Current Visit: Yes Status: Acute - Summary of Assessment and Plan Summary of Assessment and Plan: Assessment Sepsis Pneumonia Acute hypoxic respiratory failure Hypercapnia Liver and pancreatic cyst Hyponatremia- resolved Hypokalemia Elevated troponin Mod protein calorie maltrutition Plan - C/w ceftriaxone and azithromycin for pneumonia. WBC improving. Urine antigen negative. Blood cultures and urine culture NGTD. - CTA negative for PE. - Patient is hypercapninc. No history of sleep apnea. CT with fluid overload. Will give one dose of 20 of lasix. Will get overnight bipap evaluation. - Hyponatremia resolved. possibly from pneumonia and dehydration. stop IVf. c/w dietary supplements. - Minimally elevated troponin. Then negative x2. Likely demand. - f/u outpatient CT for lung nodule, liver and renal cyst. - Potassium repleted. - Time Spent with Patient Total time spent is greater than 50% in coordination of care (as documented) at patient's floor/unit and/or counseling patient: Internal Medicine: Result - Labs CBC & Chem 7: 07/26/18 06:53 07/26/18 06:53 Labs: Short CBC 07/26/18 Range/Units 06:53 WBC 15.9 H (4.3-11.1) K/mcL Hgb 12.3 D (11.5-15.4) g/dL Hct 37.1 (35.3-44.9) % Plt Count 208 (140-400) K/mcL Neutrophils # 14.0 H (1.6-8.9) K/mcL BMP 07/26/18 06:53 Sodium 136 Potassium 3.3 L Chloride 93 L Carbon Dioxide 42 H* BUN 8 Creatinine 0.21 L Glucose 121 H Calcium 8.4 L - ABG Interpretation ABG results: ABG ABG pH 7.28 pH Units (7.32-7.45) L 07/22/18 23:33 ABG pCO2 66 mmHg (35-45) H 07/22/18 23:33 ABG pO2 61 mmHg (85-104) L 07/22/18 23:33 ABG O2 Saturation 86 % (95-98) L 07/22/18 23:33 PT/INR, D-dimer PT 12.9 Seconds (9.4-12.1) H 07/22/18 17:34 - Impressions Impressions Abdomen/Pelvis CT 07/25/18 17:30 IMPRESSION: Increased bilateral pleural effusions and body wall anasarca since recent chest CT, suggesting fluid overload Moderate stool in colon. There is diverticulosis Patchy nodularity is seen in the right middle lobe, likely postinflammatory-infectious. Liver cysts and right renal cyst. D/ / Rick Lewis MD / Rick Lewis MD Interpreting Provider: Rick Lewis MD Consult Discharge Plan - Plan Referrals: NONE,PCP [Primary Care Provider] - (2) Sepsis Qualifiers: Sepsis type: sepsis due to unspecified organism Qualified Code(s): A41.9 - Sepsis, unspecified organism
[2018-07-26 10:44] LABS: ABG Base Excess 18 mEq/L (-2 to 3); ABG HCO3 46 mEq/L (21-27); ABG Oxygen Saturation 97 % (95-98); ABG PCO2 68 mmHg (35-45); ABG PH 7.44 pH Units (7.32-7.45); ABG PO2 95 mmHg (85-104); ABG TCO2 48 mEq/L (20-26)
[2018-07-26] MEDS: Azithromycin 250 MG TABLET PO SCH (10:55)
[2018-07-26] MEDS: Leptospermum Honey Paste 44 ML TUBE TP SCH (10:56)
[2018-07-26] MEDS ORDERED: Furosemide 20 MG/2 ML VIAL IVP ONE (11:43)
[2018-07-26] MEDS: cefTRIAXone 1,000 MG in Water for inj. (sterile) 20 ML 10 ML IVP SCH (21:09)
[2018-07-26] MEDS: Levalbuterol Neb 1.25 MG/3 ML IH SCH (23:22)
[2018-07-27] MEDS: Levalbuterol Neb 1.25 MG/3 ML IH SCH ×4 (04:33→22:42)
[2018-07-27 05:09] LABS: ABG Base Excess 20 mEq/L (-2 to 3); ABG HCO3 48 mEq/L (21-27); ABG Oxygen Saturation 95 % (95-98); ABG PCO2 72 mmHg (35-45); ABG PH 7.43 pH Units (7.32-7.45); ABG PO2 77 mmHg (85-104); ABG TCO2 > 50 mEq/L (20-26)
[2018-07-27] MEDS: *HR* Heparin 5,000 UNIT/ML VIAL SQ SCH ×2 (05:16→17:22)
[2018-07-27 05:25] LABS: Basophils % 0.2 %; Eosinophils # 0.1 K/mcL (0.0-0.6); Eosinophils % 1.1 %; Hematocrit 36.7 % (35.3-44.9); Immature Granulocytes % 0.9 % (0-4); Lymphocytes # 0.5 K/mcL (0.6-4.6); Lymphocytes % 4.3 %; Mean Corpuscular HGB Conc 32.7 g/dL (31.6-35.5); Mean Corpuscular Hemoglobin 29.9 pg (28.0-33.3); Mean Corpuscular Volume 91.3 fL (83.0-100.0); Mean Platelet Volume 8.6 fL (9.4-12.4); Monocytes # 1.1 K/mcL (0.0-1.3); Monocytes % 9.2 %; Neutrophils # 10.3 K/mcL (1.6-8.9); Platelet Count 202 K/mcL (140-400); Red Blood Count 4.02 M/mcL (3.82-4.97); Red Cell Distribution Width 13.6 % (11.5-14.5); Segmented Neutrophils % 84.3 %
[2018-07-27 06:18] LABS: BUN/Creatinine Ratio 55 (6-26); Blood Urea Nitrogen 12 mg/dL (8-23); Calcium 8.6 mg/dL (8.6-10.3); Carbon Dioxide 44 mEq/L (23-29); Chloride 91 mEq/L (98-107); Glucose 91 mg/dL (70-105); Osmolality,Calculated 285 (280-300); Potassium 4.1 mEq/L (3.5-5.1); Sodium 138 mEq/L (136-145); eGFR For Non-African Americans > 60 (> 60)
[2018-07-27] MEDS: Azithromycin 250 MG TABLET PO SCH (09:15)
[2018-07-27] MEDS: Leptospermum Honey Paste 44 ML TUBE TP SCH (09:15)
[2018-07-27] MEDS: Furosemide 20 MG/2 ML VIAL IVP SCH ×2 (13:21→17:23)
--- NOTE | 2018-07-27 13:33 | Internal Med Progress Note ---
Hospitalist Progress Note - Encounter Date of Encounter: 07/27/18 Time of Encounter: 10:30 - Subjective Interval History: Patient seen and examined this morning at bedside. No acute overnight events. Denies new complaints. Breathing well on oxygen mask. Patient was not on BiPAP however unclear whether patient had by BiPAP evaluation. Afebrile. - Exam Vitals: Temp Pulse Resp BP Pulse Ox 97.7 F 94 19 108/62 94 07/27/18 10:36 07/27/18 10:36 07/27/18 10:52 07/27/18 10:36 07/27/18 10:52 Exam: General: In no acute distress. frail elderly. Respiratory exam: no accessory muscle use. scattered rhonchi and rales more at base Cardiovascular exam: RRR, +S1, +S2. no murmur, gallop, rubs. GI/Abdominal exam: Non-tender, Non-distended, normal bowel sounds, soft, no peritoneal signs. Extremities exam: 1+ pedal edema, pulses palpable in b/l lower extremities. no calf tenderness Neurological exam: CN II-XII intact, AO X3, no focal deficits. Skin exam: echymosis noted - Assessment and Plan (1) Lung nodule Current Visit: Yes Status: Chronic (2) Sepsis Current Visit: Yes Status: Acute (3) Tobacco abuse Current Visit: Yes Status: Chronic (4) Hyponatremia Current Visit: Yes Status: Acute (5) Elevated troponin Current Visit: Yes Status: Acute (6) Acute respiratory failure with hypoxia Current Visit: Yes Status: Acute (7) Community acquired bacterial pneumonia Current Visit: Yes Status: Acute - Summary of Assessment and Plan Summary of Assessment and Plan: Assessment Sepsis- resolved Pneumonia Acute hypoxic respiratory failure Hypercapnia Liver and pancreatic cyst Hyponatremia- resolved Hypokalemia- resolved Elevated troponin Mod protein calorie maltrutition Fluid overload Plan - WBC improving. Urine antigen negative. Blood cultures and urine culture NGTD. C/w ceftriaxone and azithromycin for pneumonia. Will likely switch to au gmentin on DC for finish 10 day course - CTA negative for PE. - Patient is hypercapninc. No history of sleep apnea. However CT with fluid overload after initial fluid resuscitation. c/w lasix. Unclear whether patient had overnight bipap evaluation. ask nurse confirm and get today if not done already - Hyponatremia resolved. possibly from pneumonia and dehydration. stop IVf. c/w dietary supplements. - Minimally elevated troponin. Then negative x2. Likely demand. - f/u outpatient CT for lung nodule, liver and renal cyst. - Likely can be discharge after bipap evaluation - Time Spent with Patient Total time spent is greater than 50% in coordination of care (as documented) at patient's floor/unit and/or counseling patient: Internal Medicine: Result - Labs CBC & Chem 7: 07/27/18 04:52 07/27/18 04:52 Labs: Short CBC 07/27/18 Range/Units 04:52 WBC 12.2 H (4.3-11.1) K/mcL Hgb 12.0 (11.5-15.4) g/dL Hct 36.7 (35.3-44.9) % Plt Count 202 (140-400) K/mcL Neutrophils # 10.3 H (1.6-8.9) K/mcL BMP 07/27/18 04:52 Sodium 138 Potassium 4.1 Chloride 91 L Carbon Dioxide 44 H* BUN 12 Creatinine 0.22 L Glucose 91 Calcium 8.6 - ABG Interpretation ABG results: ABG ABG pH 7.43 pH Units (7.32-7.45) 07/27/18 05:04 ABG pCO2 72 mmHg (35-45) H* 07/27/18 05:04 ABG pO2 77 mmHg (85-104) L 07/27/18 05:04 ABG O2 Saturation 95 % (95-98) 07/27/18 05:04 PT/INR, D-dimer PT 12.9 Seconds (9.4-12.1) H 07/22/18 17:34 Consult Discharge Plan - Plan Referrals: NONE,PCP [Primary Care Provider] - (2) Sepsis Qualifiers: Sepsis type: sepsis due to unspecified organism Qualified Code(s): A41.9 - Sepsis, unspecified organism
[2018-07-27] MEDS: cefTRIAXone 1,000 MG in Water for inj. (sterile) 20 ML 10 ML IVP SCH (20:33)
[2018-07-28] MEDS: Levalbuterol Neb 1.25 MG/3 ML IH SCH ×5 (04:30→21:03)
[2018-07-28] MEDS: *HR* Heparin 5,000 UNIT/ML VIAL SQ SCH ×2 (05:08→17:33)
[2018-07-28 06:29] LABS: BUN/Creatinine Ratio 58 (6-26); Blood Urea Nitrogen 14 mg/dL (8-23); Calcium 8.7 mg/dL (8.6-10.3); Carbon Dioxide 44 mEq/L (23-29); Chloride 87 mEq/L (98-107); Glucose 88 mg/dL (70-105); Osmolality,Calculated 284 (280-300); Potassium 3.6 mEq/L (3.5-5.1); Sodium 137 mEq/L (136-145); eGFR For Non-African Americans > 60 (> 60)
[2018-07-28] MEDS: Leptospermum Honey Paste 44 ML TUBE TP SCH (08:11)
[2018-07-28] MEDS: Furosemide 20 MG/2 ML VIAL IVP SCH ×2 (08:11→16:48)
[2018-07-28] MEDS: Azithromycin 250 MG TABLET PO SCH (08:12)
--- NOTE | 2018-07-28 18:02 | Internal Med Progress Note ---
Hospitalist Progress Note - Encounter Date of Encounter: 07/28/18 Time of Encounter: 17:59 - Subjective Interval History: Pt became SOB overnight and required high flow oxygen. Previous physician, Dr. Maynard started her on Lasix for B/L effusion. 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 Son states that pt informed him that she is not willing to go to a NH. I spoke with pt's son and informed him that patient will need to be weaned off or down from high flow oxygen that she is on at the moment prior to discharge. Son stated that pt had been home on the floor for days before he found her and brought her into the hospital to be admitted - Exam Vitals: Temp Pulse Resp BP Pulse Ox 98.0 F 100 16 101/56 95 07/28/18 14:00 07/28/18 14:00 07/28/18 15:58 07/28/18 14:00 07/28/18 15:58 Exam: General: Alert and oriented, on BIPAP PRN, Cachectic HEENT:EOMI, pupils equal, round and reactive. Cardiovascular:Normal S1 & S2, No JVD. Pulse regular but tachycardic Lungs: Diminished bilaterally but crackles auscultated bilaterally Abdomen: Soft, non-tender, no rigidity. Extremities: No deformity or swelling Neurological: CN II-XII intact, power and sensation fully intact in all 4 limbs. No cerebellar signs, pronator drift -ve, Babinski down going bilaterally Skin:Normal color, no rash, no lesions. Pulses:Carotid and radial pulses normal +2. Rest of the physical exam is non contributory - Assessment and Plan (1) Sepsis Current Visit: Yes Status: Acute Assessment and Plan: Presented with tachycardia and leukocytosis Pt reports [id number] history of smoking, suspect underlying COPD which may mask small sized consolidation on plain film pt was tachycardic and requiring O2, so albuterol was changed to levalbuterol WBC on admission 31k --> 27k -->20.1-->15.9-->12.2 Follow-up blood cultures showed no growth. CTA showed pneumonia. Was on IV Rocephin/Azithromycin now on PO antibiotic (2) Community acquired bacterial pneumonia Current Visit: Yes Status: Acute Assessment and Plan: Was on Rocephin and Zithromax. Starting on PO antibiotic CTA chest showed multifocal airspace disease, greatest in the lower lobes. Pneumonia is favored. Will check CBC in am. (3) Acute respiratory failure with hypoxia Current Visit: Yes Status: Acute Assessment and Plan: Secondary to pneumonia and pt also likely has COPD. Consulting pulmonology for assistance, D/W with Dr. Stephens and will see in am. (4) COPD with acute exacerbation Current Visit: Yes Status: Acute Assessment and Plan: Pt denies prior history of this but clinically appears to have emphysema. Pt had been on only Levalbuterol. Will add Ipratropium and Methylprednisone. Will attempt to slowly wean off oxygen. Consulting pulmonology to see in am. Insturcted nurse to have pt placed back on BiPAP as CO2 level are elevated. (5) Tobacco abuse Current Visit: Yes Status: Chronic Assessment and Plan: smoking cessation emphasized, declines NRT at this point (6) Elevated troponin Current Visit: Yes Status: Acute Assessment and Plan: Likely due to demand ischemia, EKG without ischemic changes 0.04 on admission now negative x2 (7) Lung nodule Current Visit: Yes Status: Chronic Assessment and Plan: Incidental finding of right lung nodule measuring 1.7 cm in the patient with significant smoking history Recommend out pt follow up imaging. (8) Hyponatremia Current Visit: Yes Status: Acute Assessment and Plan: Given her history of fall with prolonged down time and infection, likely due to dehydration. Improving now IV fluid hydration. (9) Fall Current Visit: Yes Status: Acute Assessment and Plan: consult PT/OT to see. DVT Prophylaxis: Heparin - Summary of Assessment and Plan Summary of Assessment and Plan: History of present illness: Dr. Rincon Ms. Ambrose is a 83 year old female with history of tobacco abuse ([id number]) presented after an episode of fall. According to the son, he was not able to get a hold of her since Saturday, went to her house, and found her laying on the floor. Initially, patient was confused and was not able to recognize his son. However, at the time of my interview after IVF, patient was alert, oriented x3, and was able to tell me a bit more history. Pt states that she fell after slipping on the floor on Saturday but was not able to get back up on her feet thereafter because of weakness rather than pain. Fell backward onto her back without head injury. Denies loss of consciousness, headache, blurring of vision, slurring of speech, or focal weakness/numbness. She has no pain anywhere but is complaining of progressively worsening shortness of breath for the last several months. Associated with cough and weight loss. No chest pain, nausea/vomiting, palpitation, orthopnea, PND, or leg swelling. No significant sputum production or hemoptysis reported. No recent surgery. Denies any GI/ symptoms. In the ED, she was borderline hypotensive at 90/68, tachycardic around 105, and saturating 93% on 2L O2. Labwork showed markedly leukocytosis of 33, sodium of 122, creatinine of 0.42, troponin 0.04, and urinalysis negative for nitrite and leukocyte esterase. EKG was somewhat limited by artifacts but showed sinus tachycardia without overt ST-T changes concerning for ischemia. Chest x-ray incidentally showed 1.7 cm nodular density over the right lung. She was given 2 L of IV fluid and admitted for further management. - Time Spent with Patient Total time spent is greater than 50% in coordination of care (as documented) at patient's floor/unit and/or counseling patient: less than 15 minutes Plan of Care Discussed with: patient Internal Medicine: Result - Labs CBC & Chem 7: 07/27/18 04:52 07/28/18 04:46 Labs: BMP 07/28/18 04:46 Sodium 137 Potassium 3.6 Chloride 87 L Carbon Dioxide 44 H* BUN 14 Creatinine 0.24 L Glucose 88 Calcium 8.7 - ABG Interpretation ABG results: ABG ABG pH 7.43 pH Units (7.32-7.45) 07/27/18 05:04 ABG pCO2 72 mmHg (35-45) H* 07/27/18 05:04 ABG pO2 77 mmHg (85-104) L 07/27/18 05:04 ABG O2 Saturation 95 % (95-98) 07/27/18 05:04 PT/INR, D-dimer PT 12.9 Seconds (9.4-12.1) H 07/22/18 17:34 Consult Discharge Plan - Plan Referrals: NONE,PCP [Primary Care Provider] - (1) Sepsis Qualifiers: Sepsis type: sepsis due to unspecified organism Qualified Code(s): A41.9 - Sepsis, unspecified organism (9) Fall Qualifiers: Encounter type: initial encounter Qualified Code(s): W19.XXXA - Unspecified fall, initial encounter
[2018-07-28] MEDS: methylPREDNISolone 125 MG/2 ML VIAL IVP SCH ×2 (18:18→23:49)
[2018-07-28 19:15] LABS: Basophils % 0.1 %; Eosinophils # 0.1 K/mcL (0.0-0.6); Eosinophils % 0.8 %; Hematocrit 41.4 % (35.3-44.9); Hemoglobin 13.4 g/dL (11.5-15.4); Immature Granulocytes % 0.7 % (0-4); Lymphocytes # 0.6 K/mcL (0.6-4.6); Lymphocytes % 5.7 %; Mean Corpuscular HGB Conc 32.4 g/dL (31.6-35.5); Mean Corpuscular Hemoglobin 29.8 pg (28.0-33.3); Mean Platelet Volume 9.1 fL (9.4-12.4); Monocytes # 0.9 K/mcL (0.0-1.3); Monocytes % 8.2 %; Neutrophils # 9.2 K/mcL (1.6-8.9); Platelet Count 225 K/mcL (140-400); Red Cell Distribution Width 13.4 % (11.5-14.5); Segmented Neutrophils % 84.5 %
[2018-07-28 19:53] LABS: Albumin 2.6 g/dL (3.5-5.7); BUN/Creatinine Ratio 53 (6-26); Blood Urea Nitrogen 17 mg/dL (8-23); Calcium 9.4 mg/dL (8.6-10.3); Carbon Dioxide 48 mEq/L (23-29); Chloride 84 mEq/L (98-107); Glucose 162 mg/dL (70-105); Osmolality,Calculated 291 (280-300); Phosphorous 3.9 mg/dL (2.7-4.5); Potassium 3.4 mEq/L (3.5-5.1); Sodium 138 mEq/L (136-145); eGFR For Non-African Americans > 60 (> 60)
[2018-07-28] MEDS: Ipratropium Neb 0.5 MG NEBULIZER IH SCH (21:00)
[2018-07-28] MEDS: Cefdinir 300 MG CAPSULE PO SCH (22:00)
[2018-07-29] MEDS: Ipratropium Neb 0.5 MG NEBULIZER IH SCH ×4 (03:42→20:47)
[2018-07-29] MEDS: Levalbuterol Neb 1.25 MG/3 ML IH SCH ×5 (03:42→20:47)
[2018-07-29] MEDS: *HR* Heparin 5,000 UNIT/ML VIAL SQ SCH ×2 (06:25→17:30)
[2018-07-29 06:33] LABS: Basophils % 0.2 %; Hematocrit 41.4 % (35.3-44.9); Hemoglobin 13.5 g/dL (11.5-15.4); Immature Granulocytes % 0.5 % (0-4); Lymphocytes # 0.2 K/mcL (0.6-4.6); Lymphocytes % 3.6 %; Mean Corpuscular HGB Conc 32.6 g/dL (31.6-35.5); Mean Corpuscular Hemoglobin 29.9 pg (28.0-33.3); Mean Corpuscular Volume 91.8 fL (83.0-100.0); Mean Platelet Volume 9.1 fL (9.4-12.4); Monocytes % 0.6 %; Neutrophils # 5.9 K/mcL (1.6-8.9); Platelet Count 215 K/mcL (140-400); Red Blood Count 4.51 M/mcL (3.82-4.97); Red Cell Distribution Width 13.3 % (11.5-14.5); Segmented Neutrophils % 95.1 %
[2018-07-29 06:59] LABS: Albumin 2.6 g/dL (3.5-5.7); BUN/Creatinine Ratio 61 (6-26); Blood Urea Nitrogen 14 mg/dL (8-23); Calcium 9.1 mg/dL (8.6-10.3); Carbon Dioxide > 45 mEq/L (23-29); Chloride 85 mEq/L (98-107); Glucose 144 mg/dL (70-105); Osmolality,Calculated 285 (280-300); Phosphorous 4.1 mg/dL (2.7-4.5); Potassium 3.7 mEq/L (3.5-5.1); Sodium 136 mEq/L (136-145); eGFR For Non-African Americans > 60 (> 60)
[2018-07-29] MEDS: methylPREDNISolone 125 MG/2 ML VIAL IVP SCH ×2 (07:48→16:43)
[2018-07-29] MEDS: Furosemide 20 MG/2 ML VIAL IVP SCH ×2 (07:48→16:51)
[2018-07-29] MEDS: Leptospermum Honey Paste 44 ML TUBE TP SCH (07:49)
[2018-07-29] MEDS: Cefdinir 300 MG CAPSULE PO SCH (07:50)
[2018-07-29] MEDS ORDERED: Azithromycin 250 MG TABLET PO SCH (09:00)
--- NOTE | 2018-07-29 13:09 | Pulmonology Consult Note ---
Date of Encounter: 07/29/18 Time of Encounter: 13:00 Assessment and Plan (1) Acute respiratory failure with hypoxia and hypercapnia Current Visit: Yes Status: Acute Patient presenting with acute hypoxic and hypercapnic respiratory failure looks like patient was not evaluated for a long time and with this upper respiratory tract infection which turned out to pneumonia complicated with COPD exacerbation also worsening her acute on chronic diastolic heart failure. Patient also has some pulmonary hypertension contributing to the current picture. Patient will need BiPAP/noninvasive ventilation on a chronic basis to prevent recurrent hospital admission will try to do BiPAP qualification. Since patient is not responding to the current regimen of antibiotics. Will add Zosyn for anaerobic coverage and pseudomonas coverage doxycycline for extended atypical coverage will do a MRSA swab is positive will add vancomycin. We will reassess her that she will be eligible to go to [facility] patient says she is almost back to her baseline. (2) Pneumonia Current Visit: Yes Status: Acute Patient has left lower lobe consolidation than the right lower lobe we need to get a CT imaging in 8 weeks make sure the left lower lobe consolidated opacity which is suspicious for some mass underlying. Qualifiers: Pneumonia type: due to unspecified organism Laterality: bilateral Lung location: lower lobe of lung Qualified Code(s): J18.1 - Lobar pneumonia, un specified organism (3) COPD with exacerbation Current Visit: Yes Status: Acute Continue scheduled bronchodilator with steroids patient has severe COPD with emphysema will need a prolonged steroid course and taper. (4) Tobacco abuse Current Visit: Yes Status: Chronic Counseled about smoking cessation. History of Present Illness Consult date: 07/29/18 Requesting physician: Uyen Stuart Past Med Surg Social Fam HX - Past Medical History Medical history: no medical history, other Psychiatric history: no psych history - Past Surgical History Additional surgical history: unknown - Social History Smoking Status: Current every day smoker Packs per day: 1 Smokeless Tobacco Status: No Alcohol use: none Drug use: none Medications and Allergies Multivit-Min/Iron/Folic Acid/K [Adults Multivitamin Tablet] 1 tab PO DAILY 07/23/18 [History] Allergy/AdvReac Type Severity Reaction Status Date / Time No Known Allergies Allergy Verified 07/22/18 16:38 All Systems: The remainder of the systems were reviewed and are negative Physical Examination Vital Signs: Vital Signs, Last 4 Hours Temp Pulse Resp BP Pulse Ox 07/29/18 11:07 20 93 07/29/18 10:40 97.6 F 96 20 124/69 93 Results - Laboratory Findings CBC and BMP: 07/29/18 05:43 07/29/18 05:43 ABG ABG pH 7.43 pH Units (7.32-7.45) 07/27/18 05:04 ABG pCO2 72 mmHg (35-45) H* 07/27/18 05:04 ABG pO2 77 mmHg (85-104) L 07/27/18 05:04 ABG O2 Saturation 95 % (95-98) 07/27/18 05:04 PT/INR, D-dimer PT 12.9 Seconds (9.4-12.1) H 07/22/18 17:34 Abnormal lab findings: Abnormal lab results WBC 12.2 K/mcL (4.3-11.1) H 07/27/18 04:52 RBC 5.09 M/mcL (3.82-4.97) H 07/22/18 20:36 Hgb 16.6 g/dL (11.5-15.4) H 07/22/18 17:34 Hct 47.0 % (35.3-44.9) H 07/22/18 17:34 MPV 9.1 fL (9.4-12.4) L 07/29/18 05:43 9.2 K/mcL (1.6-8.9) H 07/28/18 18:51 0.2 K/mcL (0.6-4.6) L 07/29/18 05:43 1.4 K/mcL (0.0-1.3) H 07/23/18 06:06 PT 12.9 Seconds (9.4-12.1) H 07/22/18 17:34 ABG pH 7.28 pH Units (7.32-7.45) L 07/22/18 23:33 ABG pCO2 72 mmHg (35-45) H* 07/27/18 05:04 ABG pO2 77 mmHg (85-104) L 07/27/18 05:04 ABG HCO3 48 mEq/L (21-27) H 07/27/18 05:04 ABG Total CO2 > 50 mEq/L (20-26) H 07/27/18 05:04 ABG O2 Saturation 86 % (95-98) L 07/22/18 23:33 ABG Base Excess 20 mEq/L (-2 to 3) H 07/27/18 05:04 VBG pH 7.30 pH Units (7.32-7.42) L 07/23/18 06:31 VBG pCO2 64 mmHg (41-51) H 07/23/18 06:31 VBG pO2 160 mmHg (25-50) H 07/23/18 06:31 VBG HCO3 32 mEq/L (21-27) H 07/23/18 06:31 Sodium 133 mEq/L (136-145) L 07/24/18 08:13 Potassium 3.4 mEq/L (3.5-5.1) L 07/28/18 18:51 Chloride 85 mEq/L (98-107) L 07/29/18 05:43 Carbon Dioxide > 45 mEq/L (23-29) H* 07/29/18 05:43 BUN 29 mg/dL (8-23) H 07/22/18 20:36 0.23 mg/dL (0.60-1.20) L 07/29/18 05:43 61 (6-26) H 07/29/18 05:43 Glucose 144 mg/dL (70-105) H 07/29/18 05:43 POC Glucose 118 mg/dL (70-99) H 07/23/18 05:21 277 (280-300) L 07/24/18 08:13 Calcium 8.4 mg/dL (8.6-10.3) L 07/26/18 06:53 AST 55 Units/L (13-39) H 07/22/18 17:34 106 Units/L (34-104) H 07/22/18 17:34 372 Units/L (30-223) H 07/22/18 20:36 0.04 ng/mL (< 0.04) H* 07/22/18 17:34 5.9 g/dL (6.4-8.9) L 07/22/18 17:34 2.6 g/dL (3.5-5.7) L 07/29/18 05:43 Cloudy (Clear) A 07/22/18 19:05 30 mg/dL (Neg-Trace) H 07/22/18 19:05 Trace mg/dL (Negative) H 07/22/18 19:05 Ur Squamous Epith Cells Many per lpf (None-Few) H 07/22/18 19:05 - Microbiology Findings Microbiology Findings: Microbiology, Last 48 Hours 07/22/18 17:34 Blood Culture - Final Peripheral Venipuncture No growth. Final report. 07/22/18 17:34 Blood Culture - Final Peripheral Venipuncture No growth. Final report. - Clinical Findings Intake & Output: Intake & Output 07/28/18 07/29/18 07/29/18 23:59 07:59 15:59 Intake Total 120 / 870 0 / 240 240 / 240 Output Total 1550 / 4000 1000 / 1000 Balance -1430 / -3130 0 / -760 -760 / -760 Weight 52.8 kg Consult Discharge Plan - Plan Referrals: NONE,PCP [Primary Care Provider] -
--- NOTE | 2018-07-29 14:41 | Internal Med Progress Note ---
Hospitalist Progress Note - Encounter Date of Encounter: 07/29/18 Time of Encounter: 11:15 - Subjective Interval History: she is awake, no family present. she cannot tell if has sob, states when sitting on high flow she feels fine. denies wheezing, cough improving. very eager for dc. encouraged increased activity which she is happy to do. PT at bedside. no fevers, chills. - Exam Vitals: Temp Pulse Resp BP Pulse Ox 98.3 F 92 22 123/64 93 07/29/18 14:15 07/29/18 14:15 07/29/18 14:15 07/29/18 14:15 07/29/18 14:15 Exam: General: Alert and oriented, Cachectic HEENT:EOMI, pupils equal, round Cardiovascular:Normal S1 & S2, regular rate and rhythm, no le edema Lungs: Diminished bilaterally, + crackles, no wheezing, normal resp effort on high flow NC Abdomen: Soft, non-tender,non distended + bs Neurological: AAOx3 - Assessment and Plan (1) Fall Current Visit: Yes Status: Acute Assessment and Plan: PT/OT following she is resistant to placement SW following (2) Lung nodule Current Visit: Yes Status: Chronic Assessment and Plan: Incidental finding of right lung nodule measuring 1.7 cm in the patient with significant smoking history Recommend out pt follow up imaging. (3) Sepsis Current Visit: Yes Status: Resolved Assessment and Plan: 2/2 pneumonia, organism unknown Presented with tachycardia and leukocytosis, now resolved Pt reports [id number] history of smoking, suspect underlying COPD which may mask small sized consolidation on plain film Follow-up blood cultures showed no growth. CTA showed pneumonia. Was on IV Rocephin/Azithromycin now on PO antibiotic pulm consulted for continued high oxygen requirements and for further tx recs (4) Tobacco abuse Current Visit: Yes Status: Chronic Assessment and Plan: smoking cessation emphasized, declines patch at this point (5) Hyponatremia Current Visit: Yes Status: Resolved Assessment and Plan: Given her history of fall with prolonged down time and infection, likely due to dehydration.resolved with IVFs (6) Elevated troponin Current Visit: Yes Status: Acute Assessment and Plan: Likely due to demand ischemia in setting of sepsis trop 0.04 on admission then negative x2 (7) Acute respiratory failure with hypoxia Current Visit: Yes Status: Acute Assessment and Plan: Secondary to pneumonia and pt also likely has COPD. Consulting pulmonology for assistance -cont abx, nebs, wean o2 as able, IV steroids, cont current IV lasix dosing, fu pulm recs (8) Community acquired bacterial pneumonia Current Visit: Yes Status: Acute Assessment and Plan: Organism unknown Was on Rocephin and Zithromax. Started on PO antibiotic CTA chest showed multifocal airspace disease, greatest in the lower lobes. -tx as above (9) COPD with acute exacerbation Current Visit: Yes Status: Acute Assessment and Plan: Pt denies prior history of this but clinically appears to have emphysema. Will attempt to slowly wean off oxygen. Consulting pulmonology tx as above DVT Prophylaxis: Heparin - Time Spent with Patient Total time spent is greater than 50% in coordination of care (as documented) at patient's floor/unit and/or counseling patient: Plan of Care Discussed with: patient Internal Medicine: Result - Labs CBC & Chem 7: 07/29/18 05:43 07/29/18 05:43 Labs: Short CBC 07/28/18 07/29/18 Range/Units 18:51 05:43 WBC 10.9 6.2 (4.3-11.1) K/mcL Hgb 13.4 13.5 (11.5-15.4) g/dL Hct 41.4 41.4 (35.3-44.9) % Plt Count 225 215 (140-400) K/mcL Neutrophils # 9.2 H 5.9 (1.6-8.9) K/mcL BMP 07/28/18 07/29/18 18:51 05:43 Sodium 138 136 Potassium 3.4 L 3.7 Chloride 84 L 85 L Carbon Dioxide 48 H* > 45 H* BUN 17 14 Creatinine 0.32 L 0.23 L Glucose 162 H 144 H Calcium 9.4 9.1 Liver Function 07/28/18 07/29/18 Range/Units 18:51 05:43 Albumin 2.6 L 2.6 L (3.5-5.7) g/dL - ABG Interpretation ABG results: ABG ABG pH 7.43 pH Units (7.32-7.45) 07/27/18 05:04 ABG pCO2 72 mmHg (35-45) H* 07/27/18 05:04 ABG pO2 77 mmHg (85-104) L 07/27/18 05:04 ABG O2 Saturation 95 % (95-98) 07/27/18 05:04 PT/INR, D-dimer PT 12.9 Seconds (9.4-12.1) H 07/22/18 17:34 Consult Discharge Plan - Plan Referrals: NONE,PCP [Primary Care Provider] - (1) Fall Qualifiers: Encounter type: initial encounter Qualified Code(s): W19.XXXA - Unspecified fall, initial encounter (3) Sepsis Qualifiers: Sepsis type: sepsis due to unspecified organism Qualified Code(s): A41.9 - Sepsis, unspecified organism
[2018-07-29] MEDS: Doxycycline 100 MG in 0.9 % Sodium Chloride Mini Bag 100 ML IVPB SCH (17:30)
[2018-07-30] MEDS: Levalbuterol Neb 1.25 MG/3 ML IH SCH ×5 (00:05→15:40)
[2018-07-30] MEDS: methylPREDNISolone 125 MG/2 ML VIAL IVP SCH ×3 (00:47→17:03)
[2018-07-30] MEDS: Piperacillin/Tazobactam 3.375 GM in 0.9 % Sodium Chloride Mini Bag 100 ML IVPB SCH ×3 (00:48→17:04)
[2018-07-30] MEDS: Ipratropium Neb 0.5 MG NEBULIZER IH SCH ×3 (04:29→15:40)
[2018-07-30] MEDS: Doxycycline 100 MG in 0.9 % Sodium Chloride Mini Bag 100 ML IVPB SCH ×2 (06:41→18:45)
[2018-07-30] MEDS: *HR* Heparin 5,000 UNIT/ML VIAL SQ SCH ×2 (06:41→18:45)
[2018-07-30 09:37] LABS: BUN/Creatinine Ratio 72 (6-26); Blood Urea Nitrogen 21 mg/dL (8-23); Calcium 8.8 mg/dL (8.6-10.3); Carbon Dioxide > 45 mEq/L (23-29); Chloride 86 mEq/L (98-107); Glucose 122 mg/dL (70-105); Magnesium 1.6 mg/dL (1.6-2.6); Osmolality,Calculated 286 (280-300); Potassium 3.3 mEq/L (3.5-5.1); Sodium 136 mEq/L (136-145); eGFR For Non-African Americans > 60 (> 60)
[2018-07-30 09:47] LABS: Thyroid Stimulating Hormone 0.545 mcIU/mL (0.340-5.600)
[2018-07-30] MEDS: Furosemide 20 MG/2 ML VIAL IVP SCH (10:07)
[2018-07-30] MEDS: Leptospermum Honey Paste 44 ML TUBE TP SCH (10:08)
--- NOTE | 2018-07-30 10:17 | Internal Med Progress Note ---
Hospitalist Progress Note - Encounter Date of Encounter: 07/30/18 Time of Encounter: 10:17 - Exam Vitals: Temp Pulse Resp BP Pulse Ox 97.7 F 85 20 126/63 95 07/30/18 07:16 07/30/18 07:16 07/30/18 07:48 07/30/18 07:16 07/30/18 07:48 - Assessment and Plan (1) Fall Current Visit: Yes Status: Acute (2) Lung nodule Current Visit: Yes Status: Chronic (3) Sepsis Current Visit: Yes Status: Resolved (4) Tobacco abuse Current Visit: Yes Status: Chronic (5) Hyponatremia Current Visit: Yes Status: Resolved (6) Elevated troponin Current Visit: Yes Status: Acute (7) Acute respiratory failure with hypoxia Current Visit: Yes Status: Acute (8) Community acquired bacterial pneumonia Current Visit: Yes Status: Acute (9) COPD with acute exacerbation Current Visit: Yes Status: Acute - Time Spent with Patient Total time spent is greater than 50% in coordination of care (as documented) at patient's floor/unit and/or counseling patient: Internal Medicine: Result - Labs CBC & Chem 7: 07/29/18 05:43 07/30/18 08:47 Labs: BMP 07/30/18 08:47 Sodium 136 Potassium 3.3 L Chloride 86 L Carbon Dioxide > 45 H* BUN 21 Creatinine 0.29 L Glucose 122 H Calcium 8.8 - ABG Interpretation ABG results: ABG ABG pH 7.43 pH Units (7.32-7.45) 07/27/18 05:04 ABG pCO2 72 mmHg (35-45) H* 07/27/18 05:04 ABG pO2 77 mmHg (85-104) L 07/27/18 05:04 ABG O2 Saturation 95 % (95-98) 07/27/18 05:04 PT/INR, D-dimer PT 12.9 Seconds (9.4-12.1) H 07/22/18 17:34 - Impressions Impressions Thyroid Ultrasound 07/29/18 20:00 IMPRESSION: Multiple thyroid nodules. NODULE 1: ACR TI-RADS TR4: Recommend: Ultrasound-guided fine needle aspiration. NODULE 2: ACR TI-RADS TR5: Recommend: Ultrasound-guided fine needle aspiration. ACR TI-RADS recommendations: TR5 (>= 7 points): FNA if >= 1 cm; follow-up if 0.5-0.9 cm in 1, 2, 3, 4, and 5 years TR4 (4-6 points): FNA if >= 1.5 cm; follow-up if 1.0-1.4 cm in 1, 2, 3, and 5 years TR3 (3 points): FNA if >= 2.5 cm; follow-up if 1.5-2.4 cm in 1, 3, and 5 years TR2 (2 points): No FNA or follow-up TR1 (0 points): No FNA or follow-up ACR TI-RADS recommends that no more than two nodules with the highest ACR TI-RADS point total should be biopsied and no more than four nodules should be followed. D/ / 07/30/2018 06:59:55 Mihai Flannery / jayne Interpreting Provider: Mihai Flannery Consult Discharge Plan - Plan Referrals: NONE,PCP [Primary Care Provider] - (1) Fall Qualifiers: Encounter type: initial encounter Qualified Code(s): W19.XXXA - Unspecified fall, initial encounter (3) Sepsis Qualifiers: Sepsis type: sepsis due to unspecified organism Qualified Code(s): A41.9 - S epsis, unspecified organism
--- NOTE | 2018-07-30 12:01 | Pulmonology Progress Note ---
Date of Encounter: 07/30/18 Time of Encounter: 12:00 Assessment and Plan (1) Acute respiratory failure with hypoxia and hypercapnia Status: Acute Secondary to COPD exacerbation and pneumonia patient oxygen requirements are getting better (2) Pneumonia Status: Acute Review broad-spectrum antibiotics. Patient is responding well to give at least 5-7 days of Zosyn patient wanted to go to the swing bed looks like they can give the IV antibiotics Qualifiers: Pneumonia type: due to unspecified organism Laterality: bilateral Lung location: lower lobe of lung Qualified Code(s): J18.1 - Lobar pneumonia, unspecified organism (3) COPD with exacerbation Status: Acute Continue scheduled bronchodilators and steroids. Patient should at least have 2-3 weeks of steroid taper. (4) Tobacco abuse Status: Chronic Tobacco abuse counseling given Subjective Principal diagnosis: pneumonia Interval history: Emphysematous COPD exacerbation complicated by pneumonia. Patient is doing well her oxygen requirements is coming down. Objective PUL Vital signs: Last Vital Signs Temp 97.4 F L 07/30/18 10:22 Pulse 105 07/30/18 10:22 Resp 22 07/30/18 11:17 BP 105/50 07/30/18 10:22 Pulse Ox 92 07/30/18 11:17 Effort: mildly labored Auscultation: bilateral: wheezes (Minimal scattered wheezes) Cardiovascular: regular rate and rhythm Gastrointestinal: normoactive bowel sounds Extremities: no cyanosis Musculoskeletal: no deformities normal mental status, non-focal exam Results - Laboratory Findings CBC and BMP: 07/29/18 05:43 07/30/18 08:47 ABG ABG pH 7.43 pH Units (7.32-7.45) 07/27/18 05:04 ABG pCO2 72 mmHg (35-45) H* 07/27/18 05:04 ABG pO2 77 mmHg (85-104) L 07/27/18 05:04 ABG O2 Saturation 95 % (95-98) 07/27/18 05:04 PT/INR, D-dimer PT 12.9 Seconds (9.4-12.1) H 07/22/18 17:34 Abnormal lab findings: Abnormal lab results WBC 12.2 K/mcL (4.3-11.1) H 07/27/18 04:52 RBC 5.09 M/mcL (3.82-4.97) H 07/22/18 20:36 Hgb 16.6 g/dL (11.5-15.4) H 07/22/18 17:34 Hct 47.0 % (35.3-44.9) H 07/22/18 17:34 MPV 9.1 fL (9.4-12.4) L 07/29/18 05:43 9.2 K/mcL (1.6-8.9) H 07/28/18 18:51 0.2 K/mcL (0.6-4.6) L 07/29/18 05:43 1.4 K/mcL (0.0-1.3) H 07/23/18 06:06 PT 12.9 Seconds (9.4-12.1) H 07/22/18 17:34 ABG pH 7.28 pH Units (7.32-7.45) L 07/22/18 23:33 ABG pCO2 72 mmHg (35-45) H* 07/27/18 05:04 ABG pO2 77 mmHg (85-104) L 07/27/18 05:04 ABG HCO3 48 mEq/L (21-27) H 07/27/18 05:04 ABG Total CO2 > 50 mEq/L (20-26) H 07/27/18 05:04 ABG O2 Saturation 86 % (95-98) L 07/22/18 23:33 ABG Base Excess 20 mEq/L (-2 to 3) H 07/27/18 05:04 VBG pH 7.30 pH Units (7.32-7.42) L 07/23/18 06:31 VBG pCO2 64 mmHg (41-51) H 07/23/18 06:31 VBG pO2 160 mmHg (25-50) H 07/23/18 06:31 VBG HCO3 32 mEq/L (21-27) H 07/23/18 06:31 Sodium 133 mEq/L (136-145) L 07/24/18 08:13 Potassium 3.3 mEq/L (3.5-5.1) L 07/30/18 08:47 Chloride 86 mEq/L (98-107) L 07/30/18 08:47 Carbon Dioxide > 45 mEq/L (23-29) H* 07/30/18 08:47 BUN 29 mg/dL (8-23) H 07/22/18 20:36 0.29 mg/dL (0.60-1.20) L 07/30/18 08:47 72 (6-26) H 07/30/18 08:47 Glucose 122 mg/dL (70-105) H 07/30/18 08:47 POC Glucose 118 mg/dL (70-99) H 07/23/18 05:21 277 (280-300) L 07/24/18 08:13 Calcium 8.4 mg/dL (8.6-10.3) L 07/26/18 06:53 AST 55 Units/L (13-39) H 07/22/18 17:34 106 Units/L (34-104) H 07/22/18 17:34 372 Units/L (30-223) H 07/22/18 20:36 0.04 ng/mL (< 0.04) H* 07/22/18 17:34 5.9 g/dL (6.4-8.9) L 07/22/18 17:34 2.6 g/dL (3.5-5.7) L 07/29/18 05:43 Cloudy (Clear) A 07/22/18 19:05 30 mg/dL (Neg-Trace) H 07/22/18 19:05 Trace mg/dL (Negative) H 07/22/18 19:05 Ur Squamous Epith Cells Many per lpf (None-Few) H 07/22/18 19:05 - Clinical Findings Intake & Output: Intake & Output 07/29/18 07/30/18 07/30/18 23:59 07:59 15:59 Intake Total 100 / 460 0 / 460 460 / 460 Output Total 900 / 1900 1250 / 1450 200 / 1450 Balance -800 / -1440 -1250 / -990 260 / -990 Weight 52.1 kg Consult Discharge Plan - Plan Referrals: NONE,PCP [Primary Care Provider] - Bj Goodrich MD [Partnered Physician] - Prescriptions: predniSONE [PredniSONE] See Taper PO DAILY 21 Days #63 tablet [id number],Iso [Zosyn 3.375 gm/50 ml Galaxy] 3.375 gm IV Q8H 4 Days #12 froz.piggy
[2018-07-30 14:23] VITALS: BP 105/57
--- NOTE | 2018-07-30 16:31 | Discharge Summary ---
- NOTES TO OUTPATIENT PROVIDER Notes to Outpatient Provider: Patient to continue IV antibiotics for 4 more days with Zosyn and prolonged steroid taper over 4 weeks. Patient was found to have right thyroid nodule on CT which was confirmed by ultrasound. Patient will need ultrasound-guided FNA as outpatient. She also has cystic lesion on the liver and kidney which will need follow-up as outpatient. Orders not resulted at time of discharge: Pending orders 07/29/18 19:43 MRSA Surveillance Screen [MOLMIC] Routine Date of Encounter: 07/30/18 Time of Encounter: 16:31 - Discharge Diagnosis (1) Fall Priority: Secondary Status: Acute Qualifiers: Encounter type: initial encounter Qualified Code(s): W19.XXXA - Unspecified fall, initial encounter (2) Lung nodule Priority: Secondary Status: Chronic (3) Sepsis Priority: Primary Status: Resolved Qualifiers: Sepsis type: sepsis due to unspecified organism Qualified Code(s): A41.9 - Sepsis, unspecified organism (4) Tobacco abuse Priority: Secondary Status: Chronic (5) Hyponatremia Priority: Primary Status: Resolved (6) Elevated troponin Priority: Primary Status: Acute (7) Acute respiratory failure with hypoxia Priority: Primary Status: Acute (8) Community acquired bacterial pneumonia Priority: Primary Status: Acute (9) COPD with acute exacerbation Priority: Secondary Status: Acute (10) Thyroid nodule Priority: Secondary Status: Acute (11) Acute respiratory failure with hypoxia and hypercapnia Priority: Secondary Status: Acute (12) Acute on chronic diastolic (congestive) heart failure Priority: Secondary Status: Acute Hospital course: Ms. Ambrose is a 83 year old female past medical history of smoking came in after a fall. Patient was found to have sepsis likely secondary to possible pulmonary source but no consolidation was observed. Patient was started on empiric ceftriaxone and azithromycin. She also was found to have elevated troponin which were thought to be due to demand ischemia. She was given IV fluids for hyponatremia and sepsis. CTA chest showed a multifocal airspace disease. Abdomen was done to evaluate for liver cyst which was visualized as well as cyst was visualized and kidneys. Patient was found to have retaining CO2 and yellow Fluid Overload. Patient Was Started on IV Diuresis. BiPAP evaluation was obtained which was initially delayed but later patient qualified for. Given significant CO2 retention pulmonology was consulted from patient has COPD exacerbation as well. No blood cultures urinary antigen and sputum cultures were positive at this time. Patient was started on empiric Zosyn and doxycycline and steroid IV per pulmonology recommendation. Patient also had a right thyroid nodule which was evaluated with Us. TSH was normal. Which will need fine needle aspiration as outpatient. Patient was recommended rehabilitation per physical therapy which initially was refusing she wanted to go home but ultimately agreed to. Management was made to discharge patient to [facility] to continue IV antibiotics and steroid taper. She will need for follow-up with pulmonology in first week of August. Discharge discussed with: patient, family, nurse, social work, case management, clinical services consultant - Time Spent with Patient Total time spent providing and/or coordinating discharge services: Time spent: Greater than 30 minutes (40) - Discharge Medications Prescriptions: New Levalbuterol Neb [Xopenex Neb] 1.25 mg IH [id number] vial.neb Ipratropium Neb [Atrovent Neb] 0.5 mg IH [id number] inhsol predniSONE [PredniSONE] See Taper PO DAILY 21 Days #63 tablet Jfpmkdfqdrar-Ofns-Afiuzrcl,Iso [Zosyn 3.375 gm/50 ml Galaxy] 3.375 gm IV Q8H 4 Days #12 froz.piggy Continued Multivit-Min/Iron/Folic Acid/K [Adults Multivitamin Tablet] 1 tab PO DAILY Home Medications: Multivit-Min/Iron/Folic Acid/K [Adults Multivitamin Tablet] 1 tab PO DAILY 07/23/18 [History] Ipratropium Neb [Atrovent Neb] 0.5 mg IH [id number] inhsol 07/30/18 [Rx] Levalbuterol Neb [Xopenex Neb] 1.25 mg IH [id number] vial.neb 07/30/18 [Rx] Jywgilhfvprf-Yvzu-Pzjhfnsv,Iso [Zosyn 3.375 gm/50 ml Galaxy] 3.375 gm IV Q8H 4 Days #12 froz.piggy 07/30/18 [Rx] predniSONE [PredniSONE] See Taper PO DAILY 21 Days #63 tablet 07/30/18 [Rx] Allergies/Adverse Reactions: Allergy/AdvReac Type Severity Reaction Status Date / Time No Known Allergies Allergy Verified 07/22/18 16:38 Date of admission: 07/22/18 20:36 Primary care physician: PCP NONE Consults: 07/22/18 22:02 Consult to Wound Care [CONS] Routine Reason for Consult: new admit with wounds to upper back and sacrum Call Completed: No 07/22/18 23:38 Consult to Nutrition [CONS] Routine Comment: Consulting Provider: NUTRITION Reason for Dietary Consult: MST Score Consult to Document Manager [CONS] Routine Reason for SW Consult: potiential need for home health 07/23/18 09:09 Consult to Occupational Therapy [CONS] Routine Comment: Evaluate, develop and implement POC Reason for Consult: recent falls, weakness Does patient have active BEDREST order?: No Is patient medically & hemodynamically stable?: Yes Patient assessed for mobility or mobilized this visit?: No Consult to Physical Therapy [CONS] Routine Comment: Evaluate, develop and implement POC Reason for Consult: recent falls, weakness Does patient have active BEDREST order?: No Is patient medically & hemodynamically stable?: Yes Patient assessed for mobility or mobilized this visit?: No 07/28/18 17:49 Consult to Pulmonology [CONS] Routine Consulting Provider: [facility] Reason for Consult: acute respiratory distress Call Completed: Yes Discharging clinician: Lelia Maynard - Constitutional Vitals: Temp Pulse Resp BP Pulse Ox 97.4 F L 110 20 105/57 92 07/30/18 14:22 07/30/18 14:22 07/30/18 14:22 07/30/18 14:22 07/30/18 14:22 Exam: General: Alert and oriented, Cachectic HEENT:EOMI, pupils equal, round Cardiovascular:Normal S1 & S2, regular rate and rhythm, no le edema Lungs: Diminished bilaterally, + crackles, no wheezing, normal resp effort on high flow NC Abdomen: Soft, non-tender,non distended + bs Neurological: AAOx3 - Patient Status Disposition: Transfer SNF Condition: Fair - Discharge Instructions Follow Up With: NONE,PCP [Primary Care Provider] - Bj Goodrich MD [Partnered Physician] - - Diet and Activity Activity: as per physical therapy ( )
== END 2018-07-30 19:15 | disposition other institution (70) | DRG 871 ==
LOC: EMEROOARM 16:14 → 3ANU 16:14 → SUATTDRO 20:36 → 3ANU 21:08
PROVIDERS: ADMIT Internal Medicine; ATTEND Internal Medicine